=== PATIENT | female | born 1955 ===

== ENCOUNTER 2017-08-12 21:11 | Observation (INO) ==
--- NOTE | 2017-08-12 21:39 | Emergency Department Note ---
Arrival - Arrival Chief Complaint: Altered Mental Status ED Nursing Triage Note: Patient is a transfer from [facility] for futher evaluation of uti, hypoglycemia and altered mental status. Patient alseep but arousable to verbal upon triage. Patient received D50 at 100ml/hr at [facility]. History of HTN, DM, CVA in May 2016 and high cholesterol. Patient has an old AV fistula to left arm. Blood glucose recheck 116 upon triage. Mode of Arrival: Stretcher Limitations: Altered Mental Status Source: Old Records Reviewed Time Seen by Provider: 08/12/17 21:35 - History of Present Illness HPI Narrative: This 61-year-old Jones female presents on transfer from [facility] after being seen there for hypoglycemia. The patient feels a ridge that a blood sugar of 29 with subsequent D50 arose to 170. However the patient failed to awaken and continued be sluggish and lethargic. Notable workup there revealed a negative CT scan and evidence of urinary tract infection. Of note, the patient is on dialysis and is poorly compliant frequently demanding to be taken off dialysis early. Fridays dialysis she only pursued for 30 minutes before demanding to be taken off. BUN at [facility] was 69 with a creatinine of 8.8 and a potassium 3.2. The patient is still lethargic but arousable with noxious stimuli with a Accu-Chek of 116 on arrival here. Onset (ago): hour(s) (Patient presents several hours post onset of symptoms) Date of Last Menstrual Period: menopause Allergies/Adverse Reactions: Allergies Allergy/AdvReac Type Severity Reaction Status Date / Time promethazine AdvReac Intermediate Confusion Verified 10/19/16 06:56 Home Medications: Home Medications Medication Instructions Recorded Confirmed Type Multivitamin [Multivitamins] 1 each PO DAILY 07/04/16 08/12/17 History Acetaminophen Tab [Tylenol Tab] 650 mg PO Q6H PRN #0 tablet 07/13/16 08/12/17 Rx Dextrose 50% [D50] 25 gm IV PRN PRN #0 vial 07/13/16 08/12/17 Rx Diphenoxylate/Atrop 2.5-0.025 1 tablet PO BID tablet 07/13/16 08/12/17 Rx [Lomotil Tab] Glucagon 1 mg IM PRN PRN #0 vial 09/15/16 10/15/17 Rx Heparin Inj 2,000 unit IV WITH DIALYSIS PRN #0 07/13/16 08/12/17 Rx vial Insulin Regular [HumuLIN R] See Protocol SUBCUT ACHS injection 07/13/16 Rx Pantoprazole Tab [Protonix Tab] 40 mg PO BID tablet 07/13/16 08/12/17 Rx amLODIPine [Norvasc] 5 mg PO DAILY tablet 07/13/16 08/12/17 Rx Bisacodyl Tab [Dulcolax Tab] 2 tablet PO BEDTIME 10/18/16 08/12/17 History Digoxin Tab [Lanoxin Tab] 0.125 mg PO DIRECTED 10/18/16 08/12/17 History Docusate Sodium Cap [Colace Cap] 100 mg PO BID 10/18/16 08/12/17 History Gabapentin 100 mg PO BEDTIME 10/18/16 08/12/17 History HYDROcodone/ACETAMIN 5-325 [[place] 1 tablet PO DIRECTED 10/18/16 08/12/17 History 5-325] Insulin Detemir [Levemir] 10 unit SUBCUT BEDTIME 10/18/16 08/12/17 History Ondansetron [Ondansetron Odt] 4 mg PO BID 10/18/16 08/12/17 History Simethicone [Bicarsim] 80 mg PO QID 10/18/16 08/12/17 History Simvastatin [Zocor] 40 mg PO BEDTIME 10/18/16 08/12/17 History Review of System - Review of System ROS unobtainable: due to mental status Medical,Surgical,& Family Hx - Medical History Cardio: History of: Cardiac Dysrhythmia (DIGOXIN Sun), Hypertension Neurology: History of: Cerebrovascular Accident (May 2016) Endocrine: History of: Diabetes Mellitus (IDDM), Dyslipidemia Respiratory: History of: Asthma Renal: History of: Dialysis, Renal Problems (SPOT ON LEFT KIDNEY DR KAUFMAN) Gastrointestinal: History of: GERD Musculoskeletal: History of: Musculoskeletal Problems (OA) - Surgical History Cardiac Surgeries: Sugical HX of: Carotid Endarterectomy Thoracic Surgeries: Surgical HX of;: Kidney (Renal Surgery) (ROBOTIC ASSISTED LAPAROSCOPIC LEFT PARTIAL NEPHRECTOMY), Nephrectomy (LEFT PARTIUAL) HEENT Surgeries: Surgical HX of: Carotid Endarterectomy, Eye Surgery (CATARACTS) , Tonsilectomy & Adenoidectomy Abdominal Surgeries: Surgical HX of: Cholecystectomy, EGD Patient denies: Gastric Bypass Surgery (?) Reproductive Surgeries: Surgical HX of;: Hysterectomy Orthopedic Surgeries: Surgical HX of;: Orthopedic Surgery (R KNEE SCOPE) - Family History Family History: Reports;: Family Diabetes (MATERNAL GRANDMOTHER), Family Hypertension (MATERNAL GRANDMOTHER) - Social History Smoking Status: Unknown if ever smoked Frequency of Alcohol Use: Unknown Type of Drug Use: Unknown Exam Physical Examination: GENERAL: Obese Jones female demonstrating O sign. HEENT: Normocephalic. No trauma. Moist mucous membranes. Left facial droop EOMI. PERRLA. ENT NML except for very poor dentition NECK: Supple. No adenopathy. CARDIAC: Regular. No murmurs. Heart rate 61 CHEST: Clear to auscultation. No respiratory distress. O2 sat 100%. Vas-Cath left chest ABDOMEN: Soft. Nontender. Active bowel sounds. EXTREMITIES: No trauma. Normal ROM. No pedal edema. SKIN: No diaphoresis. No rash. NEURO: Lethargic but responds to noxious symptom stimuli appropriately. Vital Signs: Vital Signs Temperature 97.9 F 08/12/17 21:11 Pulse Rate 61 08/12/17 21:11 Respiratory Rate 20 08/12/17 21:11 Blood Pressure 142/65 08/12/17 21:11 O2 Sat by Pulse Oximetry 100 08/12/17 21:11 Course - Consultations Consultation #1: Hospitalist service will admit for further evaluation treatment. Results - Labs Labs: Lab per [facility] hematocrit 38 white blood cell count 4600 BUN 69 creatinine 8.8 potassium 3.2 sodium 145 glucose 116, urine 1+ positive leukocyte esterase - Impressions EKG per [facility] sinus rhythm with first-degree AV block at 61. Normal QRS duration. Nonspecific ST changes. No acute injury pattern noted. - Diagnostic Findings Procedure: CT: image reviewed by me, report reviewed by me (Brain: Normal with no acute injury noted) Disposition Clinical Impression: Altered mental status, Dialysis dependent renal failure Disposition: Still a Patient Condition: Guarded Time of Disposition: 22:06
[2017-08-12] MEDS ORDERED: LEVOFLOXACIN INJ 750 MG in PREMIX 1 EACH IV STA (21:48)
[2017-08-12] MEDS ORDERED: LEVOFLOXACIN INJ 150 ML IV ONE (22:05)
--- NOTE | 2017-08-12 22:21 | Hospitalist History & Physical ---
Assessment and Plan - Time spent with patient Time spent with patient: Less than 30 minutes (1) Altered mental status Status: Acute Assessment and plan: - Secondary to hypoglycemia. Given this patient's ESRD status, most likely her insulin is stacking; CT head from OSH without any acute process. - Neurochecks Q4h - Continue D5 IV with frequent FSG checks Current Visit: Yes (2) Diabetes mellitus Status: Chronic Assessment and plan: - Chronic issue. Given the patient's Hypoglycemia, will hold Insulin. Patient 's home insulin dosing is currently unclear. Our old records indicate that she took Detemir 10u Qhs and Regular insulin - Units not indicated. [facility] records only indicate that she receives Insulin needles but does not specify the insulin used/dose. - Will need to discuss with patient her insulin regiment once she is more awake. Will plan to hold insulin until FSG is consistently >160 Current Visit: No Qualifiers: Diabetes mellitus type: type 2 Diabetes mellitus complication status: with hypoglycemia Diabetes mellitus complication detail: with coma Diabetes mellitus chcf insulin use: unspecified termite technician insulin use status Qualified Code(s): E11.641 - Type 2 diabetes mellitus with hypoglycemia with coma (3) End stage renal disease Status: Chronic Assessment and plan: - Dialyzes MWF, last session was 08/10 (Sunday) and patient only let them dialyze for 30-mins. - Will consult Nephrology for future HD needs. - Dialyzes through [facility] (Appears old vs not well cared for, no signs of infection) Current Visit: No (4) Hypertension Status: Chronic Assessment and plan: - Chronic issue. There is a discrepancy between the transfer papers and our records here from 1-year ago. Medications from [facility] do not indicate that the patient is taking any blood pressure medications, our records show the patient takes Amlodipine 5-mg daily. Patient not currently hypertensive in the ER, will treat if that changes. Current Visit: No (5) Urinary tract infection Status: Acute Assessment and plan: - UA was checked at the OSh prior to transfer, and significant for 1+ Leukocytes. Patient received Levoflox in the ER on transfer for this. I do not feel that this patient has a UTI given that she is ESRD and likely has stagnant urine that will be dirty. No other Signs or Symptoms to suggest infection. Will hold off any further antibiotics on admission. - Follow up Urine Culture, blood cultures Current Visit: No History of Present Illness Chief complaint: Low Glucose, non-responsive History of present illness: Ms. Cabrera is a 61 year old [place] female with pmh of DMII, h/o CVA with R sided weakness, HTN and ESRD. The patient presented as a transfer from an outside facility ([facility]) secondary to hypoglycemia (29). The patient was largely non-responsive on exam, therefore history was obtained from chart review. The patient reportedly completed 30-minutes of hemodialysis on Sunday (08/10) - she stopped the HD per records. The following day, she was noted to have a glucose of 29. She was given N50 by EMS and her FSG responded up to 170, however the patient did not awaken. The patient's glucose was later found to be low again. She was subsequently started on D5 and transferred. Per the records, she was also noted to have a UTI at the OSH. Home Medications Medication Instructions Recorded Confirmed Type Multivitamin [Multivitamins] 1 each PO DAILY 07/04/16 08/12/17 History Acetaminophen Tab [Tylenol Tab] 650 mg PO Q6H PRN #0 tablet 07/13/16 08/12/17 Rx Dextrose 50% [D50] 25 gm IV PRN PRN #0 vial 07/13/16 08/12/17 Rx Diphenoxylate/Atrop 2.5-0.025 1 tablet PO BID tablet 07/13/16 08/12/17 Rx [Lomotil Tab] Glucagon 1 mg IM PRN PRN #0 vial 07/13/16 08/12/17 Rx Heparin Inj 2,000 unit IV WITH DIALYSIS PRN #0 07/13/16 08/12/17 Rx vial Insulin Regular [HumuLIN R] See Protocol SUBCUT ACHS injection 07/13/16 Rx Pantoprazole Tab [Protonix Tab] 40 mg PO BID tablet 07/13/16 08/12/17 Rx amLODIPine [Norvasc] 5 mg PO DAILY tablet 07/13/16 08/12/17 Rx Bisacodyl Tab [Dulcolax Tab] 2 tablet PO BEDTIME 10/18/16 08/12/17 History Digoxin Tab [Lanoxin Tab] 0.125 mg PO DIRECTED 10/18/16 08/12/17 History Docusate Sodium Cap [Colace Cap] 100 mg PO BID 10/18/16 08/12/17 History Gabapentin 100 mg PO BEDTIME 10/18/16 08/12/17 History HYDROcodone/ACETAMIN 5-325 [[place] 1 tablet PO DIRECTED 10/18/16 08/12/17 History 5-325] Insulin Detemir [Levemir] 10 unit SUBCUT BEDTIME 10/18/16 08/12/17 History Ondansetron [Ondansetron Odt] 4 mg PO BID 10/18/16 08/12/17 History Simethicone [Bicarsim] 80 mg PO QID 10/18/16 08/12/17 History Simvastatin [Zocor] 40 mg PO BEDTIME 10/18/16 08/12/17 History Allergies Allergy/AdvReac Type Severity Reaction Status Date / Time promethazine AdvReac Intermediate Confusion Verified 10/19/16 06:56 Medical,Surgical,& Family Hx - Medical History Cardio: History of: Cardiac Dysrhythmia (DIGOXIN Sun), Hypertension Neurology: History of: Cerebrovascular Accident (May 2016) Endocrine: History of: Diabetes Mellitus (IDDM), Dyslipidemia Respiratory: History of: Asthma Renal: History of: Dialysis, Renal Problems (SPOT ON LEFT KIDNEY DR KAUFMAN) Gastrointestinal: History of: GERD Musculoskeletal: History of: Musculoskeletal Problems (OA) - Surgical History Cardiac Surgeries: Sugical HX of: Carotid Endarterectomy Thoracic Surgeries: Surgical HX of;: Kidney (Renal Surgery) (ROBOTIC ASSISTED LAPAROSCOPIC LEFT PARTIAL NEPHRECTOMY), Nephrectomy (LEFT PARTIUAL) HEENT Surgeries: Surgical HX of: Carotid Endarterectomy, Eye Surgery (CATARACTS) , Tonsilectomy & Adenoidectomy Abdominal Surgeries: Surgical HX of: Cholecystectomy, EGD Patient denies: Gastric Bypass Surgery (?) Reproductive Surgeries: Surgical HX of;: Hysterectomy Orthopedic Surgeries: Surgical HX of;: Orthopedic Surgery (R KNEE SCOPE) - Family History Family History: Reports;: Family Diabetes (MATERNAL GRANDMOTHER), Family Hypertension (MATERNAL GRANDMOTHER) - Social History Smoking Status: Unknown if ever smoked Frequency of Alcohol Use: Unknown Type of Drug Use: Unknown ROS unobtainable: due to mental status Exam - Constitutional Vitals: Period Temp Pulse Resp BP Sys/Darby Pulse Ox Last 24 Hr 97.9 F-97.9 F 61-61 20-20 142-142/65-65 100 General appearance: no acute distress, over weight, disheveled - Head Head exam: Present: normocephalic, atraumatic. Absent: abrasion, contusion, hematoma - Eye Eye exam: Present: other (pupils round and equal, anicteric, eomi) - Neck Neck exam: Present: normal inspection, other (trachea midline). Absent: thyromegaly - Respiratory Respiratory exam: Present: clear to auscultation bilaterally. Absent: accessory muscle use, chest wall tenderness, decreased breath sounds, rales, rhonchi, stridor, wheezes - Cardiovascular Cardiovascular exam: Present: regular rate and rhythm. Absent: diastolic murmur , gallop, JVD, rubs, systolic murmur - GI/Abdominal GI/Abdominal exam: Present: normal bowel sounds. Absent: distended, mass, organomegaly, tenderness - Extremities Exam Extremities exam: Present: normal capillary refill, edema. Absent: calf tenderness - Neurological Exam Neurological exam: Present: altered, CN II-XII intact, other (will awaken for a few seconds to physical stimulus, but quickly falls back to sleep) - Skin Skin exam: Present: normal color, warm, dry, intact. Absent: rash, urticaria Results - Labs Labs: Labs from the OSH were reviewed and significant for: - UA with +Leuks H&H 11.8/38.9 - Serum Cr 8.6 Platelets 77 - BUN 69 - K+ 3.2 - Ca++ 8.3 - Na+ 145 - Glucose 58 (on transfer) - EKG EKG results: sinus rhythm - Impressions 61 yo [place] Female with DMII, ESRD presenting with Altered Mental Status secondary to hypoglycemia - Diagnostic Findings Procedure: Chest x-ray: image reviewed by me (Clear lung agrawal bilaterally), CT : report reviewed by me (CT-head report from OSH reviewed and without any acute processes) Quality Measures - VTE Deep Vein Thrombosis/Pulmonary Embolism Present on Admission: No
[2017-08-12] MEDS ORDERED: ACETAMINOPHEN 325 MG TABLET PO PRN (22:24)
[2017-08-12] MEDS ORDERED: GLUCAGON 1 MG VIAL IM PRN (22:24)
[2017-08-12] MEDS ORDERED: DEXTROSE 50% 25 GM/50 ML VIAL IV PRN (22:24)
[2017-08-12] MEDS ORDERED: ONDANSETRON 4 MG/2 ML VIAL IV PRN (22:56)
[2017-08-12 23:04] LABS: Troponin I Only < 0.015 NG/ML (0.00-0.045)
[2017-08-13] MEDS: DEXTROSE 5% NACL 0.9% 1,000 ML IV SCH ×2 (00:13→06:29)
[2017-08-13] MEDS ORDERED: hydrALAZINE 20 MG/1 ML VIAL IV ONE (01:33)
[2017-08-13 05:43] LABS: Basophils % 0.5 % (0.0-0.8); Eosinophils # 0.1 10*3/uL (0.0-0.87); Eosinophils % 1.4 % (0.00-10.9); Hematocrit 36.5 VOL% (35.7-47.0); Hemoglobin 12.1 GM/DL (12.0-16.0); Immature Granulocytes % 0.2 %; Immature Granulocytes Absolute 0.01 #; Lymphocytes % 16.2 % (21.3-54.2); Mean Corpuscular HGB Conc 33.2 GM/DL (32-36); Mean Corpuscular Hemoglobin 31 PG (27-34); Mean Corpuscular Volume 93.1 FL (87-102); Mean Platelet Volume 11.7 FL (9.6-12.0); Monocytes # 0.4 10*3/uL (0.11-0.8); Monocytes % 7.1 % (1.7-12.7); Neutrophils # 4.4 10*3/uL (1.4-7.4); Neutrophils % 74.6 % (38.7-73.9); Platelet Count 96 T/CUMM (130-400); Red Blood Count 3.92 MC/CUMM (3.8-5.5); Red Cell Distribution Width 14.2 % (9.3-17.3); White Blood Count 5.9 T/CUMM (4-12)
[2017-08-13 06:18] LABS: Calcium 7.8 MG/DL (8.5-10.1); Osmolality,Calculated 307.4 MOS/KG (273-304); Potassium 3.9 MMOL/L (3.5-5.1)
[2017-08-13 06:22] LABS: Lymphocytes 12 % (20-55); Segmented Neutrophils 82 % (50-85); Total Cells Counted 100
[2017-08-13 06:23] LABS: Burr Cells Slight; Hypochromasia Slight
--- NOTE | 2017-08-13 08:06 | XRay Report ---
Portable chest Date: 08/12/2017 Clinical history: Shortness of breath Comparison: 07/26/2016 Technique: Portable AP sitting chest Findings: The heart is slightly larger in size with stable right IJ venous dialysis catheter. Expiratory chest with accentuation of the perihilar markings. Stable mediastinum and osseous structures. Impression: Limited expiratory chest with minimal perihilar atelectasis/edema/infiltration. Stable right IJ venous dialysis catheter. PROCEDURE INTERPRETED AT [facility] DEPARTMENT OF RADIOLOGY Final Report Signed by: Dr. Yolanda Remy
[2017-08-13] MEDS ORDERED: INFLUENZA VIRUS VACCINE 0.5 ML SYRINGE IM ONE (09:00)
[2017-08-13] MEDS ORDERED: PANTOPRAZOLE 40 MG TABLET PO SCH (09:00)
--- NOTE | 2017-08-13 09:38 | Discharge Summary ---
Hospital Course - Hospital Course Hospital Course: 61-year-old female admitted to the emergency department with hypoglycemic episode. She has end-stage renal disease and receives dialysis. She reports that she took her insulin yesterday but did not eat therefore became hypoglycemic. She has returned to a normal level of consciousness. She is alert awake and oriented 3 and in no acute distress. Her dextrose infusion was discontinued earlier this morning around 5 AM and her blood sugars have been in the 200s. She has eaten breakfast and is able to maintain adequate glucose levels. She is being discharged home in stable condition to follow-up with her primary care physician. No changes were made to her home medications. She will need to continue dialysis as scheduled. Further recommendations will depend on her response to therapy as an outpatient. - Time spent with patient Time with patient DS: Less than 30 minutes Diagnosis - Discharge Diagnosis (1) ESRD on dialysis Status: Chronic (2) Diabetes mellitus Status: Chronic (3) Hypertension Status: Chronic (4) Hypoglycemia Status: Resolved Discharge Plan - Discharge Data Disposition: Disch To Home/Self Care Condition at Discharge: Stable Discharge Diet: diabetic diet Activity: resume usual activities as tolerated Hygiene: no restrictions Weight Bearing at Discharge: full weight bearing Driving: no restrictions Contact your physician if you experience:: fever over 101 - Discharge Medications Continue Multivitamin [Multivitamins] 1 each PO DAILY Diphenoxylate/Atrop 2.5-0.025 [Lomotil Tab] 1 tablet PO BID tablet Heparin Inj 2,000 unit IV WITH DIALYSIS PRN #0 vial PRN Reason: DIALYSIS Pantoprazole Tab [Protonix Tab] 40 mg PO BID tablet amLODIPine [Norvasc] 5 mg PO DAILY tablet Simvastatin [Zocor] 40 mg PO BEDTIME Simethicone [Bicarsim] 80 mg PO QID Docusate Sodium Cap [Colace Cap] 100 mg PO BID Ondansetron [Ondansetron Odt] 4 mg PO BID Gabapentin 100 mg PO BEDTIME HYDROcodone/ACETAMIN 5-325 [[place] 5-325] 1 tablet PO DIRECTED Bisacodyl Tab [Dulcolax Tab] 2 tablet PO BEDTIME Digoxin Tab [Lanoxin Tab] 0.125 mg PO DIRECTED Insulin Detemir [Levemir] 10 unit SUBCUT BEDTIME Discontinued Acetaminophen Tab [Tylenol Tab] 650 mg PO Q6H PRN #0 tablet PRN Reason: Fever > 100.4 Or Headache Dextrose 50% [D50] 25 gm IV PRN PRN #0 vial PRN Reason: Hypoglycemia with IV access Glucagon 1 mg IM PRN PRN #0 vial PRN Reason: Hypoglycemia w/o IV access Insulin Regular [HumuLIN R] See Protocol SUBCUT ACHS injection - Follow Up or Referral - Forms/Instructions Additional Discharge Instructions: Follow-up with primary care physician, and nephrology as needed Exam - Constitutional Vitals: Period Temp Pulse Resp BP Sys/Darby Pulse Ox Last 24 Hr 97.0 F-97.9 F 61-93 12-20 135-183/61-93 97-100 Discharge Results Procedures and tests throughout hospitalization: Pending Orders 08/12/17 22:35 Blood Culture Stat Labs on day of discharge: Labs from last 24 hours 08/13/17 08/13/17 08/13/17 09:04 08:04 07:17 WBC RBC Hgb Hct MCV MCH MCHC RDW Plt Count MPV Neut % (Auto) Lymph % (Auto) [place] % (Auto) Eos % (Auto) Baso % (Auto) Neut # (Auto) Lymph # (Auto) [place] # (Auto) Eos # (Auto) Baso # (Auto) Total Counted Immature Gran % Nucleated RBC % Immature Gran # Segmented Neutrophils Lymphocytes Monocytes Basophils Nucleated RBCs # Immature Plt Fraction Hypochromasia Renzo Cells Morphology Comment Sodium Potassium Chloride Carbon Dioxide Anion Gap BUN Creatinine GFR Calculation BUN/Creatinine Ratio Glucose POC Glucose 216 H 180 H 200 H Hemoglobin A1c Calculated Osmolality Calcium Total Creatine Kinase CK-MB (CK-2) Troponin I 08/13/17 08/13/17 08/13/17 06:16 05:27 05:07 WBC RBC Hgb Hct MCV MCH MCHC RDW Plt Count MPV Neut % (Auto) Lymph % (Auto) [place] % (Auto) Eos % (Auto) Baso % (Auto) Neut # (Auto) Lymph # (Auto) [place] # (Auto) Eos # (Auto) Baso # (Auto) Total Counted Immature Gran % Nucleated RBC % Immature Gran # Segmented Neutrophils Lymphocytes Monocytes Basophils Nucleated RBCs # Immature Plt Fraction Hypochromasia Renzo Cells Morphology Comment Sodium Potassium Chloride Carbon Dioxide Anion Gap BUN Creatinine GFR Calculation BUN/Creatinine Ratio Glucose POC Glucose 238 H 219 H Hemoglobin A1c 5.2 Calculated Osmolality Calcium Total Creatine Kinase CK-MB (CK-2) Troponin I 08/13/17 08/13/17 08/13/17 05:07 05:07 04:23 WBC 5.9 RBC 3.92 Hgb 12.1 Hct 36.5 MCV 93.1 MCH 31 MCHC 33.2 RDW 14.2 Plt Count 96 L MPV 11.7 Neut % (Auto) 74.6 H Lymph % (Auto) 16.2 L [place] % (Auto) 7.1 Eos % (Auto) 1.4 Baso % (Auto) 0.5 Neut # (Auto) 4.4 Lymph # (Auto) 1.0 L [place] # (Auto) 0.4 Eos # (Auto) 0.1 Baso # (Auto) 0.0 Total Counted 100 Immature Gran % 0.2 Nucleated RBC % 0.0 Immature Gran # 0.01 Segmented Neutrophils 82 Lymphocytes 12 L Monocytes 5 Basophils 1.0 H Nucleated RBCs # 0.00 Immature Plt Fraction 0.0 Hypochromasia Slight Renzo Cells Slight Morphology Comment Sodium 140 Potassium 3.9 Chloride 103 Carbon Dioxide 23 Anion Gap 17.9 H BUN 81 H Creatinine 8.20 H GFR Calculation 5 BUN/Creatinine Ratio 9.00 Glucose 193 H POC Glucose 199 H Hemoglobin A1c Calculated Osmolality 307.4 H Calcium 7.8 L Total Creatine Kinase CK-MB (CK-2) Troponin I 08/13/17 08/13/17 08/13/17 03:17 02:01 01:05 WBC RBC Hgb Hct MCV MCH MCHC RDW Plt Count MPV Neut % (Auto) Lymph % (Auto) [place] % (Auto) Eos % (Auto) Baso % (Auto) Neut # (Auto) Lymph # (Auto) [place] # (Auto) Eos # (Auto) Baso # (Auto) Total Counted Immature Gran % Nucleated RBC % Immature Gran # Segmented Neutrophils Lymphocytes Monocytes Basophils Nucleated RBCs # Immature Plt Fraction Hypochromasia [place] Cells Morphology Comment Sodium Potassium Chloride Carbon Dioxide Anion Gap BUN Creatinine GFR Calculation BUN/Creatinine Ratio Glucose POC Glucose 140 H 93 81 Hemoglobin A1c Calculated Osmolality Calcium Total Creatine Kinase CK-MB (CK-2) Troponin I 08/12/17 08/12/17 22:20 21:22 WBC RBC Hgb Hct MCV MCH MCHC RDW Plt Count MPV Neut % (Auto) Lymph % (Auto) [place] % (Auto) Eos % (Auto) Baso % (Auto) Neut # (Auto) Lymph # (Auto) [place] # (Auto) Eos # (Auto) Baso # (Auto) Total Counted Immature Gran % Nucleated RBC % Immature Gran # Segmented Neutrophils Lymphocytes Monocytes Basophils Nucleated RBCs # Immature Plt Fraction Hypochromasia Renzo Cells Morphology Comment Sodium Potassium Chloride Carbon Dioxide Anion Gap BUN Creatinine GFR Calculation BUN/Creatinine Ratio Glucose POC Glucose 116 H Hemoglobin A1c Calculated Osmolality Calcium Total Creatine Kinase 43 CK-MB (CK-2) < 1.0 Troponin I < 0.015 DS: Provider Date of admission: 08/12/17 22:20 Primary care physician: Israel Ibarra MD Attending physician on admission: Edyta Yeung MD Consults: 08/12/17 23:11 Consult to Physician [CONS] Routine Comment: ESRD on HD Consulting Provider: Eduin Davies 08/13/17 00:49 Consult to Diabetes Center, Educator [CONS] Routine Reason for Stem Roller Or Crusher Operator: Diabetes Education Consult to Dietitian [CONS] Routine Reason for Dietitian: Dietary Consult 08/13/17 00:53 Consult to Pastoral Services [CONS] Routine Comment: Pastoral Screen: Request American Indian Policy Specialist Visit Pastoral Screen Source of Request: Patient Discharging clinician: Edyta Yeung MD Expected date of discharge: 08/13/17
[2017-08-13 11:50] VITALS: BP 165/62
== END 2017-08-13 11:22 | disposition home or self-care (01) ==
LOC: EDUNIT# → N.ED 21:11 → N.EDINP 22:20 → INTOOBSV 22:20 → N.CC 23:56
PROVIDERS: ADMIT Family Medicine; ATTEND Family Medicine

== ENCOUNTER 2017-08-14 15:39 | Inpatient (IN) ==
[2017-08-14] MEDS ORDERED: diphenhydrAMINE CAP 25 MG CAPSULE PO PRN (17:31)
[2017-08-14] MEDS ORDERED: BISACODYL 5 MG TABLET PO PRN (17:31)
[2017-08-14] MEDS ORDERED: ZALEPLON 5 MG CAPSULE PO PRN (17:31)
[2017-08-14] MEDS ORDERED: ONDANSETRON 4 MG/2 ML VIAL IV PRN (17:31)
[2017-08-14] MEDS ORDERED: DOCUSATE SODIUM 100 MG CAPSULE PO PRN (17:31)
[2017-08-14] MEDS ORDERED: ACETAMINOPHEN 325 MG TABLET PO PRN (17:31)
[2017-08-14] MEDS ORDERED: LACTULOSE 20 GM/30 ML UDCUP PO PRN (17:31)
[2017-08-14] MEDS ORDERED: DEXTROSE 50% 25 GM/50 ML VIAL IV PRN (17:35)
[2017-08-14] MEDS ORDERED: GLUCAGON 1 MG VIAL IM PRN (17:35)
[2017-08-14] MEDS ORDERED: cloNIDine 0.1 MG TABLET PO PRN (17:37)
[2017-08-14] MEDS: DEXTROSE 10% 1,000 ML IV SCH (17:42)
[2017-08-14] MEDS: INSULIN LISPRO 100 UNIT/ML SUBCUT SCH ×2 (20:53→23:28)
[2017-08-15] MEDS: INSULIN LISPRO 100 UNIT/ML SUBCUT SCH ×6 (07:43→21:26)
[2017-08-15] MEDS: PANTOPRAZOLE 40 MG TABLET PO SCH (09:05)
[2017-08-15] MEDS ORDERED: HEPARIN 10,000 UNIT/10 ML VIAL IV PRN (14:36)
[2017-08-15] MEDS: DEXTROSE 10% 1,000 ML IV SCH (19:06)
[2017-08-16] MEDS: INSULIN LISPRO 100 UNIT/ML SUBCUT SCH ×6 (04:04→23:24)
[2017-08-16] MEDS ORDERED: LIDOCAINE 1%/EPI INJ 20 ML VIAL ONE (06:24)
[2017-08-16 07:21] LABS: Basophils % 0.8 % (0.0-0.8); Eosinophils # 0.1 10*3/uL (0.0-0.87); Eosinophils % 2.1 % (0.00-10.9); Hematocrit 34.2 VOL% (35.7-47.0); Hemoglobin 11.6 GM/DL (12.0-16.0); Immature Granulocytes % 0.4 %; Immature Granulocytes Absolute 0.02 #; Lymphocytes # 1.4 10*3/uL (1.4-4.0); Lymphocytes % 29.1 % (21.3-54.2); Mean Corpuscular HGB Conc 33.9 GM/DL (32-36); Mean Corpuscular Hemoglobin 31 PG (27-34); Mean Corpuscular Volume 91.9 FL (87-102); Mean Platelet Volume 11.3 FL (9.6-12.0); Monocytes # 0.6 10*3/uL (0.11-0.8); Monocytes % 11.8 % (1.7-12.7); Neutrophils # 2.7 10*3/uL (1.4-7.4); Neutrophils % 55.8 % (38.7-73.9); Platelet Count 81 T/CUMM (130-400); Red Blood Count 3.72 MC/CUMM (3.8-5.5); Red Cell Distribution Width 14.6 % (9.3-17.3); White Blood Count 4.9 T/CUMM (4-12)
[2017-08-16 08:10] LABS: Calcium 7.3 MG/DL (8.5-10.1); Osmolality,Calculated 297.3 MOS/KG (273-304); Potassium 4.8 MMOL/L (3.5-5.1)
[2017-08-16] MEDS ORDERED: PROPOFOL 200 MG/20 ML VIAL IV ONE (09:42)
[2017-08-16] MEDS ORDERED: KETAMINE 500 MG/10 ML VIAL ONE (09:42)
[2017-08-16] MEDS ORDERED: MIDAZOLAM 2 MG/2 ML VIAL ONE (09:43)
[2017-08-16] MEDS: PANTOPRAZOLE 40 MG TABLET PO SCH (09:47)
[2017-08-16] MEDS ORDERED: FLUTICASONE 50 MCG NASAL SPRAY 16 GM BOTTLE BOTH NARES PRN (14:15)
[2017-08-16] MEDS: amLODIPine 5 MG TABLET PO SCH (15:46)
[2017-08-16] MEDS: CALCIUM ACETATE 667 MG CAPSULE PO SCH (17:25)
[2017-08-16] MEDS ORDERED: GABAPENTIN 100 MG CAPSULE PO SCH (21:00)
[2017-08-16] MEDS ORDERED: PHENYTOIN ER 100 MG CAPSULE PO SCH (21:00)
[2017-08-16] MEDS: LABETALOL 100 MG TABLET PO SCH (23:24)
[2017-08-17] MEDS: INSULIN LISPRO 100 UNIT/ML SUBCUT SCH ×4 (03:00→14:38)
[2017-08-17] MEDS: LABETALOL 100 MG TABLET PO SCH ×2 (06:32→14:39)
[2017-08-17 08:12] VITALS: BP 152/69
[2017-08-17] MEDS: PANTOPRAZOLE 40 MG TABLET PO SCH (08:16)
[2017-08-17] MEDS: amLODIPine 5 MG TABLET PO SCH (08:16)
[2017-08-17] MEDS: CALCIUM ACETATE 667 MG CAPSULE PO SCH ×2 (08:16→14:38)
[2017-08-17] MEDS ORDERED: MULTIVITAMIN (CENTRUM) TABLET PO SCH (09:00)
[2017-08-17] MEDS ORDERED: HEPARIN 10,000 UNIT/10 ML VIAL IV SCH (11:30)
[2017-08-18] MEDS ORDERED: DIGOXIN 0.125 MG TABLET PO SCH (09:00)
== END 2017-08-17 14:59 | disposition home or self-care (01) | DRG 638 ==
LOC: EDUNIT# → N.ED 15:39 → N.EDINP 17:31 → N.5E 18:43
PROVIDERS: ADMIT Internal Medicine Nephrology; ATTEND Internal Medicine Nephrology

== ENCOUNTER 2018-01-23 02:48 | Inpatient (IN) ==
[2018-01-23] MEDS ORDERED: DEXTROSE 50% 25 GM/50 ML VIAL IV PRN (05:01)
[2018-01-23] MEDS ORDERED: ACETAMINOPHEN 325 MG TABLET PO PRN (05:01)
[2018-01-23] MEDS ORDERED: GLUCAGON 1 MG VIAL IM PRN (05:01)
[2018-01-23] MEDS ORDERED: hydrALAZINE 20 MG/1 ML VIAL IV PRN (05:28)
[2018-01-23 06:59] LABS: Eosinophils # 0.1 10*3/uL (0.0-0.87); Eosinophils % 2.4 % (0.00-10.9); Hematocrit 24.7 VOL% (35.7-47.0); Hemoglobin 8.4 GM/DL (12.0-16.0); Lymphocytes # 0.8 10*3/uL (1.4-4.0); Lymphocytes % 26.6 % (21.3-54.2); Mean Corpuscular Hemoglobin 32 PG (27-34); Mean Corpuscular Volume 92.5 FL (87-102); Monocytes # 0.3 10*3/uL (0.11-0.8); Monocytes % 8.8 % (1.7-12.7); Neutrophils # 1.8 10*3/uL (1.4-7.4); Neutrophils % 61.2 % (38.7-73.9); Platelet Count 153 T/CUMM (130-400); Red Blood Count 2.67 MC/CUMM (3.8-5.5); Red Cell Distribution Width 14.1 % (9.3-17.3)
[2018-01-23 07:36] LABS: Albumin 2.8 G/DL (3.4-5.0); Bilirubin,Total 0.9 MG/DL (0.2-1.0); Calcium 8.4 MG/DL (8.5-10.1); Osmolality,Calculated 280.5 MOS/KG (273-304); Potassium 3.2 MMOL/L (3.5-5.1)
[2018-01-23] MEDS: PANTOPRAZOLE 40 MG TABLET PO SCH (09:24)
[2018-01-23] MEDS: INSULIN REGULAR 100 UNIT/ML SUBCUT SCH ×4 (09:26→23:54)
[2018-01-23] MEDS: amLODIPine 5 MG TABLET PO SCH (10:34)
[2018-01-23] MEDS: HEPARIN 5,000 UNIT/1 ML VIAL SUBCUT SCH ×2 (10:34→21:04)
[2018-01-23] MEDS: cefTRIAXone 1,000 MG in SYRINGE 1 EACH IV SCH (21:04)
[2018-01-23] MEDS: PHENYTOIN ER 100 MG CAPSULE PO SCH (21:04)
[2018-01-24 05:27] LABS: Basophils % 0.7 % (0.0-0.8); Eosinophils # 0.1 10*3/uL (0.0-0.87); Eosinophils % 2.7 % (0.00-10.9); Hematocrit 23.7 VOL% (35.7-47.0); Immature Granulocytes % 0.3 %; Immature Granulocytes Absolute 0.01 #; Lymphocytes # 1.2 10*3/uL (1.4-4.0); Lymphocytes % 40.2 % (21.3-54.2); Mean Corpuscular HGB Conc 33.8 GM/DL (32-36); Mean Corpuscular Hemoglobin 32 PG (27-34); Mean Corpuscular Volume 94.4 FL (87-102); Mean Platelet Volume 10.4 FL (9.6-12.0); Monocytes # 0.3 10*3/uL (0.11-0.8); Monocytes % 9.8 % (1.7-12.7); Neutrophils # 1.4 10*3/uL (1.4-7.4); Neutrophils % 46.3 % (38.7-73.9); Platelet Count 164 T/CUMM (130-400); Red Blood Count 2.51 MC/CUMM (3.8-5.5)
[2018-01-24 05:53] LABS: Hypochromasia 1+; Ovalocytes Slight; Platelet Estimate Normal
[2018-01-24 06:05] LABS: Calcium 8.1 MG/DL (8.5-10.1); Osmolality,Calculated 280.4 MOS/KG (273-304); Potassium 3.4 MMOL/L (3.5-5.1)
[2018-01-24] MEDS ORDERED: SIMETHICONE CHEW 80 MG TABLET PO PRN (08:41)
[2018-01-24] MEDS ORDERED: FLUTICASONE 50 MCG NASAL SPRAY 16 GM BOTTLE BOTH NARES PRN (09:00)
[2018-01-24] MEDS: MULTIVITAMIN (CENTRUM) TABLET PO SCH (09:53)
[2018-01-24] MEDS: PANTOPRAZOLE 40 MG TABLET PO SCH (09:54)
[2018-01-24] MEDS: DIGOXIN 0.125 MG TABLET PO SCH (09:54)
[2018-01-24] MEDS: amLODIPine 5 MG TABLET PO SCH (09:54)
[2018-01-24] MEDS: LABETALOL 100 MG TABLET PO SCH ×2 (09:55→21:05)
[2018-01-24] MEDS: HEPARIN 5,000 UNIT/1 ML VIAL SUBCUT SCH ×2 (09:56→21:04)
[2018-01-24] MEDS: INSULIN REGULAR 100 UNIT/ML SUBCUT SCH ×4 (10:27→21:04)
[2018-01-24] MEDS: cefTRIAXone 1,000 MG in SYRINGE 1 EACH IV SCH (12:33)
[2018-01-24] MEDS: CALCIUM ACETATE 667 MG CAPSULE PO SCH ×3 (12:33→17:41)
[2018-01-24] MEDS: GABAPENTIN 100 MG CAPSULE PO SCH (21:04)
[2018-01-24] MEDS: PHENYTOIN ER 100 MG CAPSULE PO SCH (21:04)
[2018-01-25] MEDS: CALCIUM ACETATE 667 MG CAPSULE PO SCH ×3 (08:55→17:17)
[2018-01-25] MEDS: cefTRIAXone 1,000 MG in SYRINGE 1 EACH IV SCH (08:56)
[2018-01-25] MEDS: amLODIPine 5 MG TABLET PO SCH (08:56)
[2018-01-25] MEDS: PANTOPRAZOLE 40 MG TABLET PO SCH (08:57)
[2018-01-25] MEDS: MULTIVITAMIN (CENTRUM) TABLET PO SCH (08:57)
[2018-01-25] MEDS: HEPARIN 5,000 UNIT/1 ML VIAL SUBCUT SCH ×2 (08:57→20:24)
[2018-01-25] MEDS: INSULIN REGULAR 100 UNIT/ML SUBCUT SCH ×4 (08:57→20:33)
[2018-01-25] MEDS: LABETALOL 100 MG TABLET PO SCH ×3 (08:57→20:23)
[2018-01-25 11:41] LABS: Hematocrit 23.6 VOL% (35.7-47.0); Hemoglobin 7.9 GM/DL (12.0-16.0)
[2018-01-25] MEDS ORDERED: EPOETIN ALFA 2,000 UNIT/1 ML VIAL SUBCUT ONE (13:30)
[2018-01-25] MEDS: levETIRAcetam 500 MG TABLET PO SCH (14:26)
[2018-01-25] MEDS: SERTRALINE 25 MG TABLET PO SCH (14:26)
[2018-01-25] MEDS: PHENYTOIN ER 100 MG CAPSULE PO SCH (20:22)
[2018-01-25] MEDS: ATORVASTATIN 40 MG TABLET PO SCH (20:24)
[2018-01-25] MEDS: GABAPENTIN 100 MG CAPSULE PO SCH (20:24)
[2018-01-26 05:55] LABS: Hematocrit 22.4 VOL% (35.7-47.0); Hemoglobin 7.5 GM/DL (12.0-16.0)
[2018-01-26] MEDS: INSULIN REGULAR 100 UNIT/ML SUBCUT SCH ×4 (08:19→20:41)
[2018-01-26] MEDS: HEPARIN 5,000 UNIT/1 ML VIAL SUBCUT SCH ×2 (08:26→20:41)
[2018-01-26] MEDS: DIGOXIN 0.125 MG TABLET PO SCH (08:29)
[2018-01-26] MEDS: cefTRIAXone 1,000 MG in SYRINGE 1 EACH IV SCH (08:29)
[2018-01-26] MEDS: MULTIVITAMIN (CENTRUM) TABLET PO SCH (08:30)
[2018-01-26] MEDS: LABETALOL 100 MG TABLET PO SCH ×3 (08:30→20:39)
[2018-01-26] MEDS: CALCIUM ACETATE 667 MG CAPSULE PO SCH ×3 (08:30→16:04)
[2018-01-26] MEDS: SERTRALINE 25 MG TABLET PO SCH (08:30)
[2018-01-26] MEDS: levETIRAcetam 500 MG TABLET PO SCH (08:30)
[2018-01-26] MEDS: amLODIPine 5 MG TABLET PO SCH (08:31)
[2018-01-26] MEDS: PANTOPRAZOLE 40 MG TABLET PO SCH (08:31)
[2018-01-26] MEDS: PHENYTOIN ER 100 MG CAPSULE PO SCH ×2 (08:31→20:40)
[2018-01-26] MEDS: BISACODYL 10 MG SUPP RECTAL SCH (08:32)
[2018-01-26] MEDS: FERROUS SULFATE 325 MG TABLET PO SCH (12:02)
[2018-01-26] MEDS: GABAPENTIN 100 MG CAPSULE PO SCH (20:39)
[2018-01-26] MEDS: ATORVASTATIN 40 MG TABLET PO SCH (20:41)
[2018-01-27 07:02] LABS: Hematocrit 22.9 VOL% (35.7-47.0)
[2018-01-27] MEDS: INSULIN REGULAR 100 UNIT/ML SUBCUT SCH ×4 (08:46→22:52)
[2018-01-27] MEDS: HEPARIN 5,000 UNIT/1 ML VIAL SUBCUT SCH ×2 (08:47→21:02)
[2018-01-27] MEDS: cefTRIAXone 1,000 MG in SYRINGE 1 EACH IV SCH (08:48)
[2018-01-27] MEDS: SERTRALINE 25 MG TABLET PO SCH (08:49)
[2018-01-27] MEDS: LABETALOL 100 MG TABLET PO SCH ×3 (08:49→21:00)
[2018-01-27] MEDS: FERROUS SULFATE 325 MG TABLET PO SCH (08:49)
[2018-01-27] MEDS: PHENYTOIN ER 100 MG CAPSULE PO SCH ×2 (08:49→21:00)
[2018-01-27] MEDS: BISACODYL 10 MG SUPP RECTAL SCH (08:50)
[2018-01-27] MEDS: PANTOPRAZOLE 40 MG TABLET PO SCH (08:50)
[2018-01-27] MEDS: amLODIPine 5 MG TABLET PO SCH (08:50)
[2018-01-27] MEDS: CALCIUM ACETATE 667 MG CAPSULE PO SCH ×3 (08:50→16:21)
[2018-01-27] MEDS: MULTIVITAMIN (CENTRUM) TABLET PO SCH (08:50)
[2018-01-27] MEDS: levETIRAcetam 500 MG TABLET PO SCH (08:50)
[2018-01-27] MEDS: ATORVASTATIN 40 MG TABLET PO SCH (21:00)
[2018-01-27] MEDS: GABAPENTIN 100 MG CAPSULE PO SCH (21:00)
[2018-01-28] MEDS: INSULIN REGULAR 100 UNIT/ML SUBCUT SCH (09:36)
[2018-01-28] MEDS: CALCIUM ACETATE 667 MG CAPSULE PO SCH ×2 (09:37→12:57)
[2018-01-28 12:55] VITALS: BP 177/59
[2018-01-28] MEDS: cefTRIAXone 1,000 MG in SYRINGE 1 EACH IV SCH (12:56)
[2018-01-28] MEDS: LABETALOL 100 MG TABLET PO SCH (12:56)
[2018-01-28] MEDS: PHENYTOIN ER 100 MG CAPSULE PO SCH (12:56)
[2018-01-28] MEDS: DIGOXIN 0.125 MG TABLET PO SCH (12:57)
[2018-01-28] MEDS: amLODIPine 5 MG TABLET PO SCH (12:57)
[2018-01-28] MEDS: levETIRAcetam 500 MG TABLET PO SCH (12:57)
[2018-01-28] MEDS: FERROUS SULFATE 325 MG TABLET PO SCH (12:57)
[2018-01-28] MEDS: PANTOPRAZOLE 40 MG TABLET PO SCH (12:57)
[2018-01-28] MEDS: MULTIVITAMIN (CENTRUM) TABLET PO SCH (12:57)
[2018-01-28] MEDS: BISACODYL 10 MG SUPP RECTAL SCH (12:58)
[2018-01-28] MEDS: HEPARIN 5,000 UNIT/1 ML VIAL SUBCUT SCH (12:58)
[2018-01-28] MEDS: SERTRALINE 25 MG TABLET PO SCH (12:58)
== END 2018-01-28 13:13 | DRG 463 ==
LOC: N.CC 04:31 → SUATTDRO 04:31 → N.2E 01-24 19:58
PROVIDERS: ADMIT Internal Medicine; ATTEND Internal Medicine

== ENCOUNTER 2018-03-15 13:52 | Inpatient (IN) ==
[2018-03-15 16:19] LABS: ABG Base Excess -3.8 MMOL/L (-2.5-2.5); ABG HCO3 21.3 MMOL/L (20-26); ABG Oxygen Saturation 99.8 % (95-100); ABG PCO2 38.5 MM HG (35-48); ABG PH 7.353 (7.35-7.45); ABG TCO2 20.1 MMOL/L (23-27)
[2018-03-15 17:23] LABS: Hematocrit 23.1 VOL% (35.7-47.0); Hemoglobin 7.5 GM/DL (12.0-16.0); Immature Granulocytes % 0.3 %; Immature Granulocytes Absolute 0.01 #; Lymphocytes # 0.6 10*3/uL (1.4-4.0); Lymphocytes % 20.1 % (21.3-54.2); Mean Corpuscular HGB Conc 32.5 GM/DL (32-36); Mean Corpuscular Hemoglobin 30 PG (27-34); Mean Corpuscular Volume 93.1 FL (87-102); Mean Platelet Volume 11.5 FL (9.6-12.0); Monocytes # 0.1 10*3/uL (0.11-0.8); Monocytes % 4.2 % (1.7-12.7); Neutrophils # 2.3 10*3/uL (1.4-7.4); Neutrophils % 74.4 % (38.7-73.9); Platelet Count 98 T/CUMM (130-400); Red Blood Count 2.48 MC/CUMM (3.8-5.5); Red Cell Distribution Width 13.7 % (9.3-17.3); White Blood Count 3.1 T/CUMM (4-12)
[2018-03-15 17:54] LABS: Osmolality,Calculated 327.8 MOS/KG (273-304); Potassium 4.8 MMOL/L (3.5-5.1)
[2018-03-15] MEDS: PROPOFOL 1,000 MG/100 ML BOTTLE IV SCH (18:01)
[2018-03-15 18:04] LABS: Platelet Estimate Decreased
[2018-03-15] MEDS ORDERED: PHENYTOIN 100 MG/2 ML VIAL IV SCH (18:30)
[2018-03-15 18:46] LABS: Hepatitis A Ab IgM Quant 0.16 Index; Hepatitis A Ab IgM Result Negative (Negative); Hepatitis B Core IgM Quant 0.19 Index; Hepatitis B Core IgM Result Negative (Negative); Hepatitis B Surface Ag Quant < 0.10 Index; Hepatitis B Surface Ag Result Negative (Negative); Hepatitis C Virus Ab Quant 0.17 Index; Hepatitis C Virus Ab Result Negative (Negative)
[2018-03-15] MEDS ORDERED: LORazepam 2 MG/1 ML VIAL IV PRN (20:28)
[2018-03-15] MEDS ORDERED: DEXTROSE 50% 25 GM/50 ML VIAL IV PRN (20:34)
[2018-03-15] MEDS ORDERED: GLUCAGON 1 MG VIAL IM PRN (20:34)
[2018-03-15] MEDS ORDERED: PHENYTOIN 100 MG/4 ML UDCUP PO SCH (21:00)
[2018-03-15] MEDS: DIGOXIN 0.125 MG TABLET PO SCH (21:27)
[2018-03-15] MEDS: ATORVASTATIN 40 MG TABLET PO SCH (21:27)
[2018-03-15] MEDS: LABETALOL 200 MG TABLET PO SCH (23:07)
[2018-03-15] MEDS ORDERED: MORPHINE 4 MG/1 ML VIAL IV ONE (23:53)
[2018-03-16] MEDS: [UNRECOGNIZED DRUG - OTHER] IV SCH ×3 (00:34→22:25)
[2018-03-16] MEDS: SODIUM CHLORIDE IV SCH ×3 (00:34→22:25)
[2018-03-16] MEDS: FOSPHENYTOIN IV SCH ×3 (00:34→22:25)
[2018-03-16] MEDS: INSULIN REGULAR 100 UNIT/ML SUBCUT SCH ×4 (00:34→18:08)
[2018-03-16 02:41] LABS: ABG Base Excess 1.3 MMOL/L (-2.5-2.5); ABG HCO3 25.6 MMOL/L (20-26); ABG Oxygen Saturation 99.9 % (95-100); ABG PCO2 34.1 MM HG (35-48); ABG TCO2 23.3 MMOL/L (23-27); Allen Test Positive; Pt O2 Delivery Device Ventilator
[2018-03-16] MEDS: PROPOFOL 1,000 MG/100 ML BOTTLE IV SCH ×4 (02:52→19:30)
[2018-03-16 05:17] LABS: Basophils % 0.5 % (0.0-0.8); Eosinophils % 0.5 % (0.00-10.9); Hematocrit 19.5 VOL% (35.7-47.0); Hemoglobin 6.6 GM/DL (12.0-16.0); Immature Granulocytes % 0.2 %; Immature Granulocytes Absolute 0.01 #; Lymphocytes # 0.8 10*3/uL (1.4-4.0); Lymphocytes % 19.7 % (21.3-54.2); Mean Corpuscular HGB Conc 33.8 GM/DL (32-36); Mean Corpuscular Hemoglobin 31 PG (27-34); Mean Corpuscular Volume 91.1 FL (87-102); Mean Platelet Volume 11.9 FL (9.6-12.0); Monocytes # 0.2 10*3/uL (0.11-0.8); Neutrophils % 74.1 % (38.7-73.9); Red Blood Count 2.14 MC/CUMM (3.8-5.5)
[2018-03-16 05:27] LABS: Platelet Count 72 T/CUMM (130-400)
[2018-03-16 05:35] LABS: Hypochromasia 1+; Ovalocytes Slight; Platelet Estimate Decreased
[2018-03-16] MEDS ORDERED: SODIUM CHLORIDE 0.9% 1,000 ML IV PRN (05:36)
[2018-03-16 05:53] LABS: Alanine Aminotransferase < 9 U/L (13-56); Albumin 2.2 G/DL (3.4-5.0); Alkaline Phosphatase 124 U/L (45-117); Aspartate Amino Transferase 11 U/L (0-37); Blood Urea Nitrogen 63 MG/DL (7-18); Glucose 108 MG/DL (74-106); Potassium 3.7 MMOL/L (3.5-5.1); Sodium 143 MMOL/L (136-145); Total Protein 5.6 G/DL (6.4-8.3)
[2018-03-16] MEDS: SERTRALINE 25 MG TABLET PO SCH (09:49)
[2018-03-16] MEDS: amLODIPine 5 MG TABLET PO SCH (09:49)
[2018-03-16] MEDS: BISACODYL 10 MG SUPP RECTAL SCH (09:50)
[2018-03-16] MEDS: DONEPEZIL 5 MG TABLET PO SCH (09:50)
[2018-03-16] MEDS: ASPIRIN CHEW 81 MG TABLET PO SCH (09:50)
[2018-03-16] MEDS: FERROUS SULFATE 325 MG TABLET PO SCH (09:50)
[2018-03-16] MEDS: MULTIVITAMIN (CENTRUM) TABLET PO SCH (09:50)
[2018-03-16] MEDS: CALCIUM ACETATE 667 MG CAPSULE PO SCH ×3 (09:50→16:58)
[2018-03-16] MEDS: PANTOPRAZOLE 40 MG VIAL IV SCH (09:51)
[2018-03-16] MEDS: LABETALOL 200 MG TABLET PO SCH ×3 (09:52→21:36)
[2018-03-16] MEDS: FLUTICASONE 50 MCG NASAL SPRAY 16 GM BOTTLE BOTH NARES SCH (11:02)
[2018-03-16] MEDS: INSULIN GLARGINE 100 UNIT/ML SUBCUT SCH (11:02)
[2018-03-16] MEDS: ATORVASTATIN 40 MG TABLET PO SCH (21:36)
[2018-03-17] MEDS: INSULIN REGULAR 100 UNIT/ML SUBCUT SCH ×4 (00:57→18:22)
[2018-03-17] MEDS: PROPOFOL 1,000 MG/100 ML BOTTLE IV SCH ×3 (01:33→18:19)
[2018-03-17 03:35] LABS: Allen Test Positive; Pt O2 Delivery Device Ventilator
[2018-03-17 03:36] LABS: ABG Base Excess 3.9 MMOL/L (-2.5-2.5); ABG HCO3 26.2 MMOL/L (20-26); ABG Oxygen Saturation 98.1 % (95-100); ABG PCO2 31.2 MM HG (35-48); ABG PH 7.542 (7.35-7.45); ABG PO2 120.5 MM HG (80-95); ABG TCO2 27.2 MMOL/L (23-27)
[2018-03-17 05:01] LABS: Basophils % 0.3 % (0.0-0.8); Eosinophils % 0.2 % (0.00-10.9); Hematocrit 26.7 VOL% (35.7-47.0); Immature Granulocytes % 0.2 %; Immature Granulocytes Absolute 0.01 #; Lymphocytes # 0.7 10*3/uL (1.4-4.0); Lymphocytes % 12.3 % (21.3-54.2); Mean Corpuscular HGB Conc 34.8 GM/DL (32-36); Mean Corpuscular Hemoglobin 31 PG (27-34); Mean Corpuscular Volume 88.7 FL (87-102); Mean Platelet Volume 11.8 FL (9.6-12.0); Monocytes # 0.4 10*3/uL (0.11-0.8); Monocytes % 5.8 % (1.7-12.7); Neutrophils # 4.9 10*3/uL (1.4-7.4); Neutrophils % 81.2 % (38.7-73.9); Platelet Count 68 T/CUMM (130-400); Red Blood Count 3.01 MC/CUMM (3.8-5.5); Red Cell Distribution Width 15.2 % (9.3-17.3)
[2018-03-17 05:03] LABS: Hemoglobin 9.3 GM/DL (12.0-16.0)
[2018-03-17 05:33] LABS: Calcium 7.8 MG/DL (8.5-10.1); Osmolality,Calculated 287.3 MOS/KG (273-304); Potassium 3.7 MMOL/L (3.5-5.1)
[2018-03-17 05:45] LABS: Hypochromasia 1+; Ovalocytes Slight; Platelet Estimate Decreased
[2018-03-17] MEDS: PANTOPRAZOLE 40 MG VIAL IV SCH (09:00)
[2018-03-17] MEDS: INSULIN GLARGINE 100 UNIT/ML SUBCUT SCH (09:03)
[2018-03-17] MEDS: LABETALOL 200 MG TABLET PO SCH ×3 (09:04→22:00)
[2018-03-17] MEDS: ASPIRIN CHEW 81 MG TABLET PO SCH (09:05)
[2018-03-17] MEDS: FERROUS SULFATE 325 MG TABLET PO SCH (09:05)
[2018-03-17] MEDS: MULTIVITAMIN (CENTRUM) TABLET PO SCH (09:05)
[2018-03-17] MEDS: DONEPEZIL 5 MG TABLET PO SCH (09:05)
[2018-03-17] MEDS: BISACODYL 10 MG SUPP RECTAL SCH (09:05)
[2018-03-17] MEDS: amLODIPine 5 MG TABLET PO SCH (09:05)
[2018-03-17] MEDS: SERTRALINE 25 MG TABLET PO SCH (09:05)
[2018-03-17] MEDS: CALCIUM ACETATE 667 MG CAPSULE PO SCH ×3 (09:05→18:18)
[2018-03-17] MEDS: FLUTICASONE 50 MCG NASAL SPRAY 16 GM BOTTLE BOTH NARES SCH (09:19)
[2018-03-17] MEDS: SODIUM CHLORIDE IV SCH ×2 (09:48→22:16)
[2018-03-17] MEDS: FOSPHENYTOIN IV SCH ×2 (09:48→22:16)
[2018-03-17] MEDS: [UNRECOGNIZED DRUG - OTHER] IV SCH ×2 (09:48→22:16)
[2018-03-17] MEDS: ATORVASTATIN 40 MG TABLET PO SCH (22:17)
[2018-03-18] MEDS: INSULIN REGULAR 100 UNIT/ML SUBCUT SCH ×4 (00:37→17:57)
[2018-03-18 03:33] LABS: Basophils % 0.2 % (0.0-0.8); Hematocrit 28.9 VOL% (35.7-47.0); Hemoglobin 9.6 GM/DL (12.0-16.0); Immature Granulocytes % 0.3 %; Immature Granulocytes Absolute 0.03 #; Lymphocytes # 0.7 10*3/uL (1.4-4.0); Lymphocytes % 7.2 % (21.3-54.2); Mean Corpuscular HGB Conc 33.2 GM/DL (32-36); Mean Corpuscular Hemoglobin 30 PG (27-34); Mean Corpuscular Volume 89.2 FL (87-102); Mean Platelet Volume 12.8 FL (9.6-12.0); Monocytes # 0.3 10*3/uL (0.11-0.8); Monocytes % 3.5 % (1.7-12.7); Neutrophils % 88.8 % (38.7-73.9); Red Blood Count 3.24 MC/CUMM (3.8-5.5); Red Cell Distribution Width 15.2 % (9.3-17.3)
[2018-03-18 03:38] LABS: Platelet Count 69 T/CUMM (130-400)
[2018-03-18 03:47] LABS: Calcium 7.7 MG/DL (8.5-10.1); Osmolality,Calculated 286.8 MOS/KG (273-304); Potassium 4.3 MMOL/L (3.5-5.1)
[2018-03-18 03:55] LABS: ABG Base Excess 1.7 MMOL/L (-2.5-2.5); ABG HCO3 25.9 MMOL/L (20-26); ABG PCO2 38.9 MM HG (35-48); ABG PH 7.433 (7.35-7.45); ABG TCO2 23.5 MMOL/L (23-27); Allen Test Positive; Pt O2 Delivery Device Ventilator
[2018-03-18 03:58] LABS: Band Neutrophils 15 % (0-10); Lymphocytes 6 % (20-55); Segmented Neutrophils 78 % (50-85); Total Cells Counted 100
[2018-03-18 04:02] LABS: Hypochromasia 1+; Microcytosis 1+; Ovalocytes 1+; Platelet Estimate Decreased
[2018-03-18] MEDS: CALCIUM ACETATE 667 MG CAPSULE PO SCH ×3 (09:12→17:57)
[2018-03-18] MEDS: INSULIN GLARGINE 100 UNIT/ML SUBCUT SCH (09:13)
[2018-03-18] MEDS: PANTOPRAZOLE 40 MG VIAL IV SCH (09:55)
[2018-03-18] MEDS: BISACODYL 10 MG SUPP RECTAL SCH (09:56)
[2018-03-18] MEDS: FOSPHENYTOIN IV SCH ×2 (09:56→20:14)
[2018-03-18] MEDS: FERROUS SULFATE 325 MG TABLET PO SCH (09:56)
[2018-03-18] MEDS: SERTRALINE 25 MG TABLET PO SCH (09:56)
[2018-03-18] MEDS: DONEPEZIL 5 MG TABLET PO SCH (09:56)
[2018-03-18] MEDS: SODIUM CHLORIDE IV SCH ×2 (09:56→20:14)
[2018-03-18] MEDS: [UNRECOGNIZED DRUG - OTHER] IV SCH ×2 (09:56→20:14)
[2018-03-18] MEDS: ASPIRIN CHEW 81 MG TABLET PO SCH (09:56)
[2018-03-18] MEDS: MULTIVITAMIN LIQUID (CENTRUM) 60 ML BOTTLE PO SCH (09:57)
[2018-03-18] MEDS: FLUTICASONE 50 MCG NASAL SPRAY 16 GM BOTTLE BOTH NARES SCH (09:57)
[2018-03-18] MEDS: amLODIPine 5 MG TABLET PO SCH (13:17)
[2018-03-18] MEDS: LABETALOL 200 MG TABLET PO SCH ×2 (13:18→21:19)
[2018-03-18] MEDS: DIGOXIN 0.125 MG TABLET PO SCH (14:03)
[2018-03-18] MEDS: PROPOFOL 1,000 MG/100 ML BOTTLE IV SCH (17:57)
[2018-03-18] MEDS: ATORVASTATIN 40 MG TABLET PO SCH (20:15)
[2018-03-19] MEDS: INSULIN REGULAR 100 UNIT/ML SUBCUT SCH ×4 (00:12→20:33)
[2018-03-19 04:40] LABS: ABG Base Excess 7.2 MMOL/L (-2.5-2.5); ABG HCO3 30.6 MMOL/L (20-26); ABG PCO2 38.6 MM HG (35-48); ABG PH 7.517 (7.35-7.45); ABG PO2 108.6 MM HG (80-95); ABG TCO2 31.8 MMOL/L (23-27)
[2018-03-19 04:49] LABS: Basophils % 0.1 % (0.0-0.8); Eosinophils % 0.1 % (0.00-10.9); Hematocrit 27.4 VOL% (35.7-47.0); Immature Granulocytes % 0.9 %; Immature Granulocytes Absolute 0.07 #; Lymphocytes # 0.6 10*3/uL (1.4-4.0); Lymphocytes % 7.8 % (21.3-54.2); Mean Corpuscular HGB Conc 32.8 GM/DL (32-36); Mean Corpuscular Hemoglobin 30 PG (27-34); Mean Corpuscular Volume 90.7 FL (87-102); Mean Platelet Volume 12.4 FL (9.6-12.0); Monocytes # 0.3 10*3/uL (0.11-0.8); Monocytes % 4.4 % (1.7-12.7); Neutrophils # 6.4 10*3/uL (1.4-7.4); Neutrophils % 86.7 % (38.7-73.9); Platelet Count 83 T/CUMM (130-400); Red Blood Count 3.02 MC/CUMM (3.8-5.5); Red Cell Distribution Width 15.2 % (9.3-17.3); White Blood Count 7.4 T/CUMM (4-12)
[2018-03-19 05:21] LABS: Hypochromasia 1+; Lymphocytes 5 % (20-55); Ovalocytes Slight; Platelet Estimate Decreased; Segmented Neutrophils 89 % (50-85); Total Cells Counted 100
[2018-03-19 05:22] LABS: Microcytosis Slight
[2018-03-19 05:37] LABS: Prealbumin 9.3 MG/DL (20-40)
[2018-03-19 05:48] LABS: Calcium 7.5 MG/DL (8.5-10.1); Osmolality,Calculated 286.4 MOS/KG (273-304); Potassium 4.4 MMOL/L (3.5-5.1)
[2018-03-19] MEDS: FOSPHENYTOIN IV SCH ×2 (09:38→20:34)
[2018-03-19] MEDS: [UNRECOGNIZED DRUG - OTHER] IV SCH ×2 (09:38→20:34)
[2018-03-19] MEDS: SODIUM CHLORIDE IV SCH ×2 (09:38→20:34)
[2018-03-19] MEDS: DONEPEZIL 5 MG TABLET PO SCH (09:38)
[2018-03-19] MEDS: CALCIUM ACETATE 667 MG CAPSULE PO SCH ×3 (09:39→17:52)
[2018-03-19] MEDS: SERTRALINE 25 MG TABLET PO SCH (09:39)
[2018-03-19] MEDS: FERROUS SULFATE 325 MG TABLET PO SCH (09:39)
[2018-03-19] MEDS: LABETALOL 200 MG TABLET PO SCH ×2 (09:39→20:33)
[2018-03-19] MEDS: amLODIPine 5 MG TABLET PO SCH (09:39)
[2018-03-19] MEDS: ASPIRIN CHEW 81 MG TABLET PO SCH (09:40)
[2018-03-19] MEDS: MULTIVITAMIN LIQUID (CENTRUM) 60 ML BOTTLE PO SCH (09:40)
[2018-03-19] MEDS: BISACODYL 10 MG SUPP RECTAL SCH (09:40)
[2018-03-19] MEDS: FLUTICASONE 50 MCG NASAL SPRAY 16 GM BOTTLE BOTH NARES SCH (09:41)
[2018-03-19] MEDS: PANTOPRAZOLE 40 MG VIAL IV SCH (09:55)
[2018-03-19] MEDS: INSULIN GLARGINE 100 UNIT/ML SUBCUT SCH (09:56)
[2018-03-19] MEDS: PROPOFOL 1,000 MG/100 ML BOTTLE IV SCH (20:33)
[2018-03-19] MEDS: ATORVASTATIN 40 MG TABLET PO SCH (20:33)
[2018-03-20] MEDS: INSULIN REGULAR 100 UNIT/ML SUBCUT SCH ×4 (00:10→19:02)
[2018-03-20 04:00] LABS: ABG Base Excess 8.2 MMOL/L (-2.5-2.5); ABG HCO3 32.2 MMOL/L (20-26); ABG Oxygen Saturation 98.2 % (95-100); ABG PCO2 42.7 MM HG (35-48); ABG PH 7.495 (7.35-7.45); ABG PO2 116.6 MM HG (80-95); ABG TCO2 33.5 MMOL/L (23-27); Allen Test Positive; Pt O2 Delivery Device Ventilator
[2018-03-20 05:15] LABS: Basophils % 0.3 % (0.0-0.8); Eosinophils % 0.3 % (0.00-10.9); Hematocrit 25.4 VOL% (35.7-47.0); Hemoglobin 8.3 GM/DL (12.0-16.0); Immature Granulocytes % 0.5 %; Immature Granulocytes Absolute 0.03 #; Lymphocytes # 0.5 10*3/uL (1.4-4.0); Mean Corpuscular HGB Conc 32.7 GM/DL (32-36); Mean Corpuscular Hemoglobin 30 PG (27-34); Mean Platelet Volume 12.2 FL (9.6-12.0); Monocytes # 0.4 10*3/uL (0.11-0.8); Monocytes % 6.5 % (1.7-12.7); Neutrophils # 4.9 10*3/uL (1.4-7.4); Neutrophils % 83.4 % (38.7-73.9); Platelet Count 89 T/CUMM (130-400); Red Blood Count 2.76 MC/CUMM (3.8-5.5); Red Cell Distribution Width 15.4 % (9.3-17.3); White Blood Count 5.9 T/CUMM (4-12)
[2018-03-20 05:37] LABS: Calcium 7.9 MG/DL (8.5-10.1); Osmolality,Calculated 293.4 MOS/KG (273-304); Potassium 5.2 MMOL/L (3.5-5.1)
[2018-03-20 05:41] LABS: Hypochromasia 2+; Ovalocytes Slight
[2018-03-20 05:42] LABS: Microcytosis 1+; Platelet Estimate Decreased
[2018-03-20] MEDS: FLUTICASONE 50 MCG NASAL SPRAY 16 GM BOTTLE BOTH NARES SCH (08:20)
[2018-03-20] MEDS: INSULIN GLARGINE 100 UNIT/ML SUBCUT SCH (08:33)
[2018-03-20] MEDS: PANTOPRAZOLE 40 MG VIAL IV SCH (08:33)
[2018-03-20] MEDS: FERROUS SULFATE 325 MG TABLET PO SCH (08:34)
[2018-03-20] MEDS: CALCIUM ACETATE 667 MG CAPSULE PO SCH ×3 (08:34→19:01)
[2018-03-20] MEDS: LABETALOL 200 MG TABLET PO SCH ×2 (08:34→20:23)
[2018-03-20] MEDS: amLODIPine 5 MG TABLET PO SCH (08:34)
[2018-03-20] MEDS: DONEPEZIL 5 MG TABLET PO SCH (08:34)
[2018-03-20] MEDS: ASPIRIN CHEW 81 MG TABLET PO SCH (08:35)
[2018-03-20] MEDS: SERTRALINE 25 MG TABLET PO SCH (08:35)
[2018-03-20] MEDS: BISACODYL 10 MG SUPP RECTAL SCH (08:35)
[2018-03-20] MEDS: MULTIVITAMIN LIQUID (CENTRUM) 60 ML BOTTLE PO SCH (08:35)
[2018-03-20] MEDS: SODIUM CHLORIDE IV SCH ×2 (09:00→20:27)
[2018-03-20] MEDS: [UNRECOGNIZED DRUG - OTHER] IV SCH ×2 (09:00→20:27)
[2018-03-20] MEDS: FOSPHENYTOIN IV SCH ×2 (09:00→20:27)
[2018-03-20] MEDS ORDERED: ALBUMIN 25% 25 GM in PREMIX 1 EACH IV ONE (11:54)
[2018-03-20] MEDS: DIGOXIN 0.125 MG TABLET PO SCH (12:20)
[2018-03-20] MEDS: PROPOFOL 1,000 MG/100 ML BOTTLE IV SCH (17:50)
[2018-03-20] MEDS: ATORVASTATIN 40 MG TABLET PO SCH (20:23)
[2018-03-21] MEDS: INSULIN REGULAR 100 UNIT/ML SUBCUT SCH ×4 (02:22→18:05)
[2018-03-21 03:55] LABS: ABG Base Excess 6.4 MMOL/L (-2.5-2.5); ABG HCO3 30.3 MMOL/L (20-26); ABG Oxygen Saturation 98.8 % (95-100); ABG PCO2 46.2 MM HG (35-48); ABG PH 7.438 (7.35-7.45); ABG TCO2 29.6 MMOL/L (23-27)
[2018-03-21 06:28] LABS: Basophils % 0.4 % (0.0-0.8); Eosinophils % 0.6 % (0.00-10.9); Hematocrit 18.9 VOL% (35.7-47.0); Immature Granulocytes % 1.3 %; Immature Granulocytes Absolute 0.06 #; Lymphocytes # 0.7 10*3/uL (1.4-4.0); Lymphocytes % 14.4 % (21.3-54.2); Mean Corpuscular HGB Conc 32.8 GM/DL (32-36); Mean Corpuscular Hemoglobin 31 PG (27-34); Mean Corpuscular Volume 95.5 FL (87-102); Mean Platelet Volume 12.5 FL (9.6-12.0); Monocytes # 0.4 10*3/uL (0.11-0.8); Monocytes % 9.3 % (1.7-12.7); Neutrophils # 3.4 10*3/uL (1.4-7.4); Platelet Count 73 T/CUMM (130-400); Red Blood Count 1.98 MC/CUMM (3.8-5.5); White Blood Count 4.6 T/CUMM (4-12)
[2018-03-21 06:34] LABS: Hemoglobin 6.2 GM/DL (12.0-16.0)
[2018-03-21 06:37] LABS: Calcium 7.9 MG/DL (8.5-10.1); Osmolality,Calculated 286.8 MOS/KG (273-304)
[2018-03-21 06:57] LABS: Hypochromasia 1+
[2018-03-21] MEDS: FLUTICASONE 50 MCG NASAL SPRAY 16 GM BOTTLE BOTH NARES SCH (09:46)
[2018-03-21] MEDS: CALCIUM ACETATE 667 MG CAPSULE PO SCH ×3 (10:00→18:04)
[2018-03-21] MEDS: BISACODYL 10 MG SUPP RECTAL SCH (10:00)
[2018-03-21] MEDS: ASPIRIN CHEW 81 MG TABLET PO SCH (10:01)
[2018-03-21] MEDS: FERROUS SULFATE 325 MG TABLET PO SCH (10:01)
[2018-03-21] MEDS: SERTRALINE 25 MG TABLET PO SCH (10:01)
[2018-03-21] MEDS: DONEPEZIL 5 MG TABLET PO SCH (10:01)
[2018-03-21] MEDS: amLODIPine 5 MG TABLET PO SCH (10:01)
[2018-03-21] MEDS: LABETALOL 200 MG TABLET PO SCH ×2 (10:01→20:48)
[2018-03-21] MEDS: PANTOPRAZOLE 40 MG VIAL IV SCH (10:02)
[2018-03-21] MEDS: INSULIN GLARGINE 100 UNIT/ML SUBCUT SCH (10:02)
[2018-03-21] MEDS: MULTIVITAMIN LIQUID (CENTRUM) 60 ML BOTTLE PO SCH (10:04)
[2018-03-21] MEDS: [UNRECOGNIZED DRUG - OTHER] IV SCH ×2 (10:04→20:48)
[2018-03-21] MEDS: SODIUM CHLORIDE IV SCH ×2 (10:04→20:48)
[2018-03-21] MEDS: FOSPHENYTOIN IV SCH ×2 (10:04→20:48)
[2018-03-21] MEDS: SODIUM CHLORIDE 0.9% 1,000 ML IV SCH (11:21)
[2018-03-21] MEDS: PROPOFOL 1,000 MG/100 ML BOTTLE IV SCH (16:15)
[2018-03-21] MEDS: ATORVASTATIN 40 MG TABLET PO SCH (20:48)
[2018-03-22] MEDS: INSULIN REGULAR 100 UNIT/ML SUBCUT SCH ×5 (00:52→23:20)
[2018-03-22 04:03] LABS: ABG Base Excess 5.8 MMOL/L (-2.5-2.5); ABG HCO3 30.3 MMOL/L (20-26); ABG Oxygen Saturation 98.3 % (95-100); ABG PCO2 43.8 MM HG (35-48); ABG PH 7.458 (7.35-7.45); ABG PO2 123.7 MM HG (80-95); ABG TCO2 31.7 MMOL/L (23-27)
[2018-03-22 04:37] LABS: Basophils % 0.3 % (0.0-0.8); Eosinophils # 0.1 10*3/uL (0.0-0.87); Eosinophils % 1.4 % (0.00-10.9); Hematocrit 26.8 VOL% (35.7-47.0); Hemoglobin 8.5 GM/DL (12.0-16.0); Immature Granulocytes % 0.4 %; Immature Granulocytes Absolute 0.03 #; Lymphocytes # 0.6 10*3/uL (1.4-4.0); Lymphocytes % 8.1 % (21.3-54.2); Mean Corpuscular HGB Conc 31.7 GM/DL (32-36); Mean Corpuscular Hemoglobin 28 PG (27-34); Mean Corpuscular Volume 88.4 FL (87-102); Mean Platelet Volume 12.2 FL (9.6-12.0); Monocytes # 0.8 10*3/uL (0.11-0.8); Monocytes % 9.9 % (1.7-12.7); Neutrophils # 6.2 10*3/uL (1.4-7.4); Neutrophils % 79.9 % (38.7-73.9); Platelet Count 86 T/CUMM (130-400); Red Blood Count 3.03 MC/CUMM (3.8-5.5); Red Cell Distribution Width 17.3 % (9.3-17.3); White Blood Count 7.7 T/CUMM (4-12)
[2018-03-22 05:04] LABS: Calcium 7.7 MG/DL (8.5-10.1); Osmolality,Calculated 292.8 MOS/KG (273-304); Potassium 5.5 MMOL/L (3.5-5.1)
[2018-03-22 06:03] LABS: Prealbumin 9.6 MG/DL (20-40)
[2018-03-22 07:48] LABS: Band Neutrophils 1 % (0-10); Eosinophils 2 % (0-10); Hypochromasia 1+; Lymphocytes 8 % (20-55); Platelet Estimate Decreased; Segmented Neutrophils 86 % (50-85); Total Cells Counted 100
[2018-03-22] MEDS: BISACODYL 10 MG SUPP RECTAL SCH (09:12)
[2018-03-22] MEDS: amLODIPine 5 MG TABLET PO SCH (09:13)
[2018-03-22] MEDS: ASPIRIN CHEW 81 MG TABLET PO SCH (09:13)
[2018-03-22] MEDS: CALCIUM ACETATE 667 MG CAPSULE PO SCH ×3 (09:13→17:22)
[2018-03-22] MEDS: FERROUS SULFATE 325 MG TABLET PO SCH (09:13)
[2018-03-22] MEDS: DONEPEZIL 5 MG TABLET PO SCH (09:13)
[2018-03-22] MEDS: SERTRALINE 25 MG TABLET PO SCH (09:13)
[2018-03-22] MEDS: LABETALOL 200 MG TABLET PO SCH ×2 (09:13→20:43)
[2018-03-22] MEDS: INSULIN GLARGINE 100 UNIT/ML SUBCUT SCH (09:14)
[2018-03-22] MEDS: PANTOPRAZOLE 40 MG VIAL IV SCH (09:14)
[2018-03-22] MEDS: FOSPHENYTOIN IV SCH ×2 (09:15→20:42)
[2018-03-22] MEDS: SODIUM CHLORIDE IV SCH ×2 (09:15→20:42)
[2018-03-22] MEDS: [UNRECOGNIZED DRUG - OTHER] IV SCH ×2 (09:15→20:42)
[2018-03-22] MEDS: MULTIVITAMIN LIQUID (CENTRUM) 60 ML BOTTLE PO SCH (09:16)
[2018-03-22] MEDS: SODIUM CHLORIDE 0.9% 1,000 ML IV SCH (11:58)
[2018-03-22] MEDS: FLUTICASONE 50 MCG NASAL SPRAY 16 GM BOTTLE BOTH NARES SCH ×2 (11:58→12:02)
[2018-03-22] MEDS: DIGOXIN 0.125 MG TABLET PO SCH (12:36)
[2018-03-22] MEDS: PROPOFOL 1,000 MG/100 ML BOTTLE IV SCH (16:45)
[2018-03-22] MEDS: ATORVASTATIN 40 MG TABLET PO SCH (20:43)
[2018-03-22] MEDS: GABAPENTIN 100 MG CAPSULE PO PRN (22:02)
[2018-03-23] MEDS: INSULIN REGULAR 100 UNIT/ML SUBCUT SCH ×3 (05:28→18:03)
[2018-03-23 07:16] LABS: ABG Base Excess 6.4 MMOL/L (-2.5-2.5); ABG HCO3 30.3 MMOL/L (20-26); ABG Oxygen Saturation 98.5 % (95-100); ABG PCO2 45.2 MM HG (35-48); ABG PH 7.449 (7.35-7.45); ABG TCO2 28.1 MMOL/L (23-27)
[2018-03-23] MEDS: INSULIN GLARGINE 100 UNIT/ML SUBCUT SCH (09:07)
[2018-03-23] MEDS: MULTIVITAMIN LIQUID (CENTRUM) 60 ML BOTTLE PO SCH (09:07)
[2018-03-23] MEDS: amLODIPine 5 MG TABLET PO SCH (09:08)
[2018-03-23] MEDS: BISACODYL 10 MG SUPP RECTAL SCH (09:08)
[2018-03-23] MEDS: PANTOPRAZOLE 40 MG VIAL IV SCH (09:08)
[2018-03-23] MEDS: CALCIUM ACETATE 667 MG CAPSULE PO SCH ×3 (09:08→18:25)
[2018-03-23] MEDS: FERROUS SULFATE 325 MG TABLET PO SCH (09:09)
[2018-03-23] MEDS: ASPIRIN CHEW 81 MG TABLET PO SCH (09:09)
[2018-03-23] MEDS: DONEPEZIL 5 MG TABLET PO SCH (09:09)
[2018-03-23] MEDS: LABETALOL 200 MG TABLET PO SCH ×2 (09:09→20:01)
[2018-03-23] MEDS: SERTRALINE 25 MG TABLET PO SCH (09:09)
[2018-03-23] MEDS: SODIUM CHLORIDE IV SCH ×2 (09:10→20:02)
[2018-03-23] MEDS: FOSPHENYTOIN IV SCH ×2 (09:10→20:02)
[2018-03-23] MEDS: [UNRECOGNIZED DRUG - OTHER] IV SCH ×2 (09:10→20:02)
[2018-03-23] MEDS: FLUTICASONE 50 MCG NASAL SPRAY 16 GM BOTTLE BOTH NARES SCH (09:11)
[2018-03-23 09:45] LABS: Allen Test Positive; Pt O2 Delivery Device Ventilator
[2018-03-23 09:47] LABS: ABG Base Excess 6.1 MMOL/L (-2.5-2.5); ABG HCO3 30.5 MMOL/L (20-26); ABG Oxygen Saturation 97.8 % (95-100); ABG PH 7.459 (7.35-7.45); ABG PO2 103.1 MM HG (80-95); ABG TCO2 31.9 MMOL/L (23-27)
[2018-03-23] MEDS: SODIUM CHLORIDE 0.9% 1,000 ML IV SCH (12:12)
[2018-03-23] MEDS: PROPOFOL 1,000 MG/100 ML BOTTLE IV SCH (17:39)
[2018-03-23] MEDS: ATORVASTATIN 40 MG TABLET PO SCH (20:02)
[2018-03-23] MEDS: GABAPENTIN 100 MG CAPSULE PO PRN (20:02)
[2018-03-24] MEDS: INSULIN REGULAR 100 UNIT/ML SUBCUT SCH ×5 (01:32→23:43)
[2018-03-24 04:33] LABS: ABG Base Excess 6.4 MMOL/L (-2.5-2.5); ABG HCO3 30.2 MMOL/L (20-26); ABG Oxygen Saturation 98.8 % (95-100); ABG PCO2 46.5 MM HG (35-48); ABG PH 7.438 (7.35-7.45); ABG TCO2 28.7 MMOL/L (23-27); Allen Test Positive; Pt O2 Delivery Device Ventilator
[2018-03-24 04:54] LABS: Basophils % 0.3 % (0.0-0.8); Eosinophils # 0.1 10*3/uL (0.0-0.87); Eosinophils % 0.9 % (0.00-10.9); Immature Granulocytes % 0.4 %; Immature Granulocytes Absolute 0.04 #; Lymphocytes # 0.6 10*3/uL (1.4-4.0); Lymphocytes % 6.6 % (21.3-54.2); Mean Corpuscular HGB Conc 33.3 GM/DL (32-36); Mean Corpuscular Hemoglobin 29 PG (27-34); Mean Platelet Volume 11.4 FL (9.6-12.0); Monocytes # 0.5 10*3/uL (0.11-0.8); Monocytes % 5.3 % (1.7-12.7); Neutrophils # 8.4 10*3/uL (1.4-7.4); Neutrophils % 86.5 % (38.7-73.9); Platelet Count 100 T/CUMM (130-400); Red Blood Count 2.79 MC/CUMM (3.8-5.5); Red Cell Distribution Width 16.1 % (9.3-17.3); White Blood Count 9.7 T/CUMM (4-12)
[2018-03-24 05:38] LABS: Calcium 7.8 MG/DL (8.5-10.1); Osmolality,Calculated 289.1 MOS/KG (273-304); Potassium 5.6 MMOL/L (3.5-5.1)
[2018-03-24 05:43] LABS: Band Neutrophils 2 % (0-10); Hypochromasia 1+; Lymphocytes 5 % (20-55); Microcytosis 1+; Segmented Neutrophils 90 % (50-85); Total Cells Counted 100
[2018-03-24 05:44] LABS: Platelet Estimate Adequate
[2018-03-24] MEDS: ASPIRIN CHEW 81 MG TABLET PO SCH (08:51)
[2018-03-24] MEDS: FERROUS SULFATE 325 MG TABLET PO SCH (08:52)
[2018-03-24] MEDS: DONEPEZIL 5 MG TABLET PO SCH (08:52)
[2018-03-24] MEDS: CALCIUM ACETATE 667 MG CAPSULE PO SCH ×3 (08:52→19:08)
[2018-03-24] MEDS: SERTRALINE 25 MG TABLET PO SCH (08:52)
[2018-03-24] MEDS: LABETALOL 200 MG TABLET PO SCH ×2 (08:52→20:30)
[2018-03-24] MEDS: amLODIPine 5 MG TABLET PO SCH (08:52)
[2018-03-24] MEDS: MULTIVITAMIN LIQUID (CENTRUM) 60 ML BOTTLE PO SCH (08:53)
[2018-03-24] MEDS: PANTOPRAZOLE 40 MG VIAL IV SCH (08:53)
[2018-03-24] MEDS: FOSPHENYTOIN IV SCH ×2 (08:55→20:29)
[2018-03-24] MEDS: SODIUM CHLORIDE IV SCH ×2 (08:55→20:29)
[2018-03-24] MEDS: [UNRECOGNIZED DRUG - OTHER] IV SCH ×2 (08:55→20:29)
[2018-03-24] MEDS: FLUTICASONE 50 MCG NASAL SPRAY 16 GM BOTTLE BOTH NARES SCH (08:56)
[2018-03-24] MEDS: BISACODYL 10 MG SUPP RECTAL SCH (08:56)
[2018-03-24] MEDS: INSULIN GLARGINE 100 UNIT/ML SUBCUT SCH (08:57)
[2018-03-24] MEDS: SODIUM CHLORIDE 0.9% 1,000 ML IV SCH (10:39)
[2018-03-24] MEDS: PROPOFOL 1,000 MG/100 ML BOTTLE IV SCH (18:36)
[2018-03-24] MEDS: ATORVASTATIN 40 MG TABLET PO SCH (20:30)
[2018-03-24] MEDS: GABAPENTIN 100 MG CAPSULE PO PRN (20:30)
[2018-03-25 04:44] LABS: ABG Base Excess 5.2 MMOL/L (-2.5-2.5); ABG HCO3 29.1 MMOL/L (20-26); ABG PCO2 43.9 MM HG (35-48); ABG PH 7.441 (7.35-7.45); ABG PO2 98.5 MM HG (80-95); ABG TCO2 27.5 MMOL/L (23-27); Allen Test Positive; Pt O2 Delivery Device Ventilator
[2018-03-25 05:13] LABS: Prealbumin 12.2 MG/DL (20-40)
[2018-03-25] MEDS: INSULIN REGULAR 100 UNIT/ML SUBCUT SCH ×3 (05:42→19:45)
[2018-03-25 09:12] LABS: ABG Base Excess 0.2 MMOL/L (-2.5-2.5); ABG HCO3 24.6 MMOL/L (20-26); ABG Oxygen Saturation 97.5 % (95-100); ABG TCO2 33.5 MMOL/L (23-27)
[2018-03-25 09:18] LABS: ABG PH 7.058 (7.35-7.45)
[2018-03-25] MEDS ORDERED: SODIUM CHLORIDE 0.9% 1,000 ML IV PRN (09:26)
[2018-03-25] MEDS: CALCIUM ACETATE 667 MG CAPSULE PO SCH (09:28)
[2018-03-25] MEDS: MULTIVITAMIN LIQUID (CENTRUM) 60 ML BOTTLE PO SCH (09:53)
[2018-03-25] MEDS: FERROUS SULFATE 325 MG TABLET PO SCH (09:53)
[2018-03-25] MEDS: DONEPEZIL 5 MG TABLET PO SCH (09:53)
[2018-03-25] MEDS: ASPIRIN CHEW 81 MG TABLET PO SCH (09:53)
[2018-03-25] MEDS: amLODIPine 5 MG TABLET PO SCH (09:54)
[2018-03-25] MEDS: FLUTICASONE 50 MCG NASAL SPRAY 16 GM BOTTLE BOTH NARES SCH (09:54)
[2018-03-25] MEDS: LABETALOL 200 MG TABLET PO SCH ×2 (09:55→22:34)
[2018-03-25] MEDS: SERTRALINE 25 MG TABLET PO SCH (09:55)
[2018-03-25] MEDS: INSULIN GLARGINE 100 UNIT/ML SUBCUT SCH (09:55)
[2018-03-25] MEDS: [UNRECOGNIZED DRUG - OTHER] IV SCH ×2 (10:07→21:43)
[2018-03-25] MEDS: BISACODYL 10 MG SUPP RECTAL SCH (10:07)
[2018-03-25] MEDS: FOSPHENYTOIN IV SCH ×2 (10:07→21:43)
[2018-03-25] MEDS: SODIUM CHLORIDE IV SCH ×2 (10:07→21:43)
[2018-03-25] MEDS: PANTOPRAZOLE 40 MG VIAL IV SCH (10:08)
[2018-03-25 10:58] LABS: ABG Base Excess 1.7 MMOL/L (-2.5-2.5); ABG Oxygen Saturation 99.3 % (95-100); ABG TCO2 29.5 MMOL/L (23-27); Pt O2 Delivery Device BIPAP
[2018-03-25 11:01] LABS: ABG PCO2 76.5 MM HG (35-48)
[2018-03-25] MEDS: DIGOXIN 0.125 MG TABLET PO SCH (14:36)
[2018-03-25] MEDS: ALBUTEROL/IPRATROPIUM 3 ML NEB RESP TX SCH ×2 (15:10→19:55)
[2018-03-25] MEDS: GABAPENTIN 100 MG CAPSULE PO PRN (22:34)
[2018-03-25] MEDS: ATORVASTATIN 40 MG TABLET PO SCH (22:34)
[2018-03-26] MEDS: ALBUTEROL/IPRATROPIUM 3 ML NEB RESP TX SCH ×6 (00:23→19:29)
[2018-03-26] MEDS: INSULIN REGULAR 100 UNIT/ML SUBCUT SCH ×4 (00:27→18:00)
[2018-03-26 03:13] LABS: ABG Base Excess 2.4 MMOL/L (-2.5-2.5); ABG HCO3 27.8 MMOL/L (20-26); ABG Oxygen Saturation 99.4 % (95-100); ABG PCO2 46.4 MM HG (35-48); ABG PH 7.395 (7.35-7.45); ABG PO2 379.8 MM HG (80-95); ABG TCO2 29.2 MMOL/L (23-27); Allen Test Positive; Pt O2 Delivery Device BIPAP
[2018-03-26 07:48] LABS: Basophils % 0.3 % (0.0-0.8); Eosinophils # 0.1 10*3/uL (0.0-0.87); Eosinophils % 0.7 % (0.00-10.9); Hematocrit 33.2 VOL% (35.7-47.0); Immature Granulocytes % 0.6 %; Immature Granulocytes Absolute 0.06 #; Lymphocytes # 0.6 10*3/uL (1.4-4.0); Lymphocytes % 5.5 % (21.3-54.2); Mean Corpuscular HGB Conc 32.5 GM/DL (32-36); Mean Corpuscular Hemoglobin 29 PG (27-34); Mean Corpuscular Volume 88.5 FL (87-102); Monocytes # 0.4 10*3/uL (0.11-0.8); Monocytes % 4.1 % (1.7-12.7); Neutrophils # 9.5 10*3/uL (1.4-7.4); Neutrophils % 88.8 % (38.7-73.9); Platelet Count 141 T/CUMM (130-400); Red Blood Count 3.75 MC/CUMM (3.8-5.5); Red Cell Distribution Width 15.3 % (9.3-17.3); White Blood Count 10.7 T/CUMM (4-12)
[2018-03-26 07:49] LABS: Hemoglobin 10.8 GM/DL (12.0-16.0)
[2018-03-26 08:37] LABS: Bilirubin,Total 1.4 MG/DL (0.2-1.0); Osmolality,Calculated 304.1 MOS/KG (273-304)
[2018-03-26 08:41] LABS: Potassium 6.3 MMOL/L (3.5-5.1)
[2018-03-26] MEDS: LABETALOL 200 MG TABLET PO SCH ×2 (09:44→20:11)
[2018-03-26] MEDS: ASPIRIN CHEW 81 MG TABLET PO SCH (09:44)
[2018-03-26] MEDS: BISACODYL 10 MG SUPP RECTAL SCH (09:44)
[2018-03-26] MEDS: SERTRALINE 25 MG TABLET PO SCH (09:44)
[2018-03-26] MEDS: DONEPEZIL 5 MG TABLET PO SCH (09:45)
[2018-03-26] MEDS: FOSPHENYTOIN IV SCH ×2 (09:45→20:10)
[2018-03-26] MEDS: SODIUM CHLORIDE IV SCH ×2 (09:45→20:10)
[2018-03-26] MEDS: MULTIVITAMIN LIQUID (CENTRUM) 60 ML BOTTLE PO SCH (09:45)
[2018-03-26] MEDS: FERROUS SULFATE 325 MG TABLET PO SCH (09:45)
[2018-03-26] MEDS: amLODIPine 5 MG TABLET PO SCH (09:45)
[2018-03-26] MEDS: [UNRECOGNIZED DRUG - OTHER] IV SCH ×2 (09:45→20:10)
[2018-03-26] MEDS: INSULIN GLARGINE 100 UNIT/ML SUBCUT SCH (09:46)
[2018-03-26] MEDS: FLUTICASONE 50 MCG NASAL SPRAY 16 GM BOTTLE BOTH NARES SCH (09:46)
[2018-03-26] MEDS: PANTOPRAZOLE 40 MG VIAL IV SCH (09:46)
[2018-03-26] MEDS: ATORVASTATIN 40 MG TABLET PO SCH (20:11)
[2018-03-26] MEDS: GABAPENTIN 100 MG CAPSULE PO PRN (20:11)
[2018-03-27] MEDS: ALBUTEROL/IPRATROPIUM 3 ML NEB RESP TX SCH ×7 (00:03→19:05)
[2018-03-27] MEDS: INSULIN REGULAR 100 UNIT/ML SUBCUT SCH ×4 (00:03→18:14)
[2018-03-27] MEDS ORDERED: VECURONIUM 10 MG VIAL IV ONE ×2 (02:40→02:57)
[2018-03-27] MEDS ORDERED: ETOMIDATE 20 MG/10 ML VIAL IV ONE ×2 (02:41→02:57)
[2018-03-27] MEDS ORDERED: NOREPINEPHRINE 4 MG/4 ML VIAL IV ONE ×2 (02:42→02:43)
[2018-03-27] MEDS ORDERED: NOREPINEPHRINE 8 MG in SODIUM CHLORIDE 0.9% 242 ML IV PRN (02:58)
[2018-03-27 03:58] LABS: ABG Base Excess 4.1 MMOL/L (-2.5-2.5); ABG HCO3 28.1 MMOL/L (20-26); ABG Oxygen Saturation 98.7 % (95-100); ABG PCO2 47.3 MM HG (35-48); ABG PH 7.404 (7.35-7.45); ABG TCO2 26.5 MMOL/L (23-27); Allen Test Positive; Pt O2 Delivery Device Ventilator
[2018-03-27] MEDS: PROPOFOL 1,000 MG/100 ML BOTTLE IV SCH (04:06)
[2018-03-27] MEDS ORDERED: ACETAMINOPHEN 325 MG/10.15 ML UDCUP PO PRN (04:23)
[2018-03-27] MEDS ORDERED: LEVOFLOXACIN INJ 750 MG in PREMIX 1 EACH IV ONE (04:30)
[2018-03-27 05:23] LABS: Basophils % 0.5 % (0.0-0.8); Eosinophils % 0.5 % (0.00-10.9); Hematocrit 34.1 VOL% (35.7-47.0); Hemoglobin 11.5 GM/DL (12.0-16.0); Immature Granulocytes % 0.3 %; Immature Granulocytes Absolute 0.02 #; Lymphocytes # 0.1 10*3/uL (1.4-4.0); Lymphocytes % 1.6 % (21.3-54.2); Mean Corpuscular HGB Conc 33.7 GM/DL (32-36); Mean Corpuscular Hemoglobin 30 PG (27-34); Mean Corpuscular Volume 88.1 FL (87-102); Mean Platelet Volume 12.2 FL (9.6-12.0); Monocytes % 0.2 % (1.7-12.7); Neutrophils # 5.9 10*3/uL (1.4-7.4); Neutrophils % 96.9 % (38.7-73.9); Platelet Count 140 T/CUMM (130-400); Red Blood Count 3.87 MC/CUMM (3.8-5.5); Red Cell Distribution Width 15.4 % (9.3-17.3); White Blood Count 6.1 T/CUMM (4-12)
[2018-03-27 05:55] LABS: Band Neutrophils 3 % (0-10); Eosinophils 1 % (0-10); Lymphocytes 1 % (20-55); Segmented Neutrophils 95 % (50-85); Total Cells Counted 100
[2018-03-27 05:56] LABS: Calcium 8.1 MG/DL (8.5-10.1); Hypochromasia 1+; Microcytosis Slight; Osmolality,Calculated 286.8 MOS/KG (273-304); Ovalocytes Slight; Platelet Estimate Normal; Potassium 4.9 MMOL/L (3.5-5.1)
[2018-03-27] MEDS: FOSPHENYTOIN IV SCH ×2 (09:27→20:38)
[2018-03-27] MEDS: SODIUM CHLORIDE IV SCH ×2 (09:27→20:38)
[2018-03-27] MEDS: PANTOPRAZOLE 40 MG VIAL IV SCH (09:27)
[2018-03-27] MEDS: [UNRECOGNIZED DRUG - OTHER] IV SCH ×2 (09:27→20:38)
[2018-03-27] MEDS: FERROUS SULFATE 325 MG TABLET PO SCH (09:28)
[2018-03-27] MEDS: LABETALOL 200 MG TABLET PO SCH ×3 (09:28→21:46)
[2018-03-27] MEDS: amLODIPine 5 MG TABLET PO SCH (09:28)
[2018-03-27] MEDS: DONEPEZIL 5 MG TABLET PO SCH (09:28)
[2018-03-27] MEDS: ASPIRIN CHEW 81 MG TABLET PO SCH (09:28)
[2018-03-27] MEDS: BISACODYL 10 MG SUPP RECTAL SCH (09:28)
[2018-03-27] MEDS: SERTRALINE 25 MG TABLET PO SCH (09:28)
[2018-03-27] MEDS: FLUTICASONE 50 MCG NASAL SPRAY 16 GM BOTTLE BOTH NARES SCH (09:29)
[2018-03-27] MEDS: MULTIVITAMIN LIQUID (CENTRUM) 60 ML BOTTLE PO SCH (09:29)
[2018-03-27] MEDS: INSULIN GLARGINE 100 UNIT/ML SUBCUT SCH (10:14)
[2018-03-27] MEDS ORDERED: NOREPINEPHRINE 16 MG in SODIUM CHLORIDE 0.9% 234 ML IV PRN (11:32)
[2018-03-27] MEDS: DIGOXIN 0.125 MG TABLET PO SCH (15:36)
[2018-03-27] MEDS: MORPHINE 4 MG/1 ML VIAL IV PRN ×2 (15:51→20:36)
[2018-03-27] MEDS: ATORVASTATIN 40 MG TABLET PO SCH (20:37)
[2018-03-28] MEDS: ALBUTEROL/IPRATROPIUM 3 ML NEB RESP TX SCH ×6 (00:15→20:10)
[2018-03-28] MEDS: INSULIN REGULAR 100 UNIT/ML SUBCUT SCH ×4 (00:42→19:10)
[2018-03-28 05:00] LABS: ABG Base Excess 4.7 MMOL/L (-2.5-2.5); ABG HCO3 28.5 MMOL/L (20-26); ABG Oxygen Saturation 98.7 % (95-100); ABG PCO2 39.3 MM HG (35-48); ABG PH 7.478 (7.35-7.45); ABG PO2 151.6 MM HG (80-95); ABG TCO2 29.7 MMOL/L (23-27); Allen Test Positive; Pt O2 Delivery Device Ventilator
[2018-03-28 06:02] LABS: Osmolality,Calculated 286.7 MOS/KG (273-304)
[2018-03-28 06:07] LABS: Basophils % 0.3 % (0.0-0.8); Eosinophils # 0.1 10*3/uL (0.0-0.87); Hematocrit 26.3 VOL% (35.7-47.0); Immature Granulocytes % 0.7 %; Immature Granulocytes Absolute 0.06 #; Lymphocytes # 0.7 10*3/uL (1.4-4.0); Lymphocytes % 7.6 % (21.3-54.2); Mean Corpuscular HGB Conc 33.8 GM/DL (32-36); Mean Corpuscular Hemoglobin 30 PG (27-34); Mean Corpuscular Volume 87.1 FL (87-102); Mean Platelet Volume 12.5 FL (9.6-12.0); Monocytes # 0.5 10*3/uL (0.11-0.8); Monocytes % 5.4 % (1.7-12.7); Neutrophils # 7.7 10*3/uL (1.4-7.4); Platelet Count 133 T/CUMM (130-400); Red Cell Distribution Width 15.2 % (9.3-17.3)
[2018-03-28 06:08] LABS: Hemoglobin 8.9 GM/DL (12.0-16.0); Red Blood Count 3.02 MC/CUMM (3.8-5.5); White Blood Count 9.1 T/CUMM (4-12)
[2018-03-28 06:14] LABS: Band Neutrophils 1 % (0-10); Hypochromasia 1+; Lymphocytes 8 % (20-55); Platelet Estimate Normal; Segmented Neutrophils 83 % (50-85); Total Cells Counted 100
[2018-03-28 06:15] LABS: Giant Platelets Few; Microcytosis Slight; Ovalocytes Slight
[2018-03-28] MEDS: INSULIN GLARGINE 100 UNIT/ML SUBCUT SCH (09:06)
[2018-03-28] MEDS: BISACODYL 10 MG SUPP RECTAL SCH (09:07)
[2018-03-28] MEDS: LABETALOL 200 MG TABLET PO SCH ×2 (09:07→20:21)
[2018-03-28] MEDS: FERROUS SULFATE 325 MG TABLET PO SCH (09:07)
[2018-03-28] MEDS: amLODIPine 5 MG TABLET PO SCH (09:07)
[2018-03-28] MEDS: ASPIRIN CHEW 81 MG TABLET PO SCH (09:07)
[2018-03-28] MEDS: PANTOPRAZOLE 40 MG VIAL IV SCH (09:08)
[2018-03-28] MEDS: DONEPEZIL 5 MG TABLET PO SCH (09:08)
[2018-03-28] MEDS: SERTRALINE 25 MG TABLET PO SCH (09:08)
[2018-03-28] MEDS: [UNRECOGNIZED DRUG - OTHER] IV SCH ×2 (09:09→20:21)
[2018-03-28] MEDS: FLUTICASONE 50 MCG NASAL SPRAY 16 GM BOTTLE BOTH NARES SCH (09:09)
[2018-03-28] MEDS: SODIUM CHLORIDE IV SCH ×2 (09:09→20:21)
[2018-03-28] MEDS: FOSPHENYTOIN IV SCH ×2 (09:09→20:21)
[2018-03-28] MEDS: PROPOFOL 1,000 MG/100 ML BOTTLE IV SCH (09:22)
[2018-03-28] MEDS: MULTIVITAMIN LIQUID (CENTRUM) 60 ML BOTTLE PO SCH (10:47)
[2018-03-28] MEDS ORDERED: VANCOMYCIN INJ 500 MG in SODIUM CHLORIDE 0.9% 100 ML IV PRN (12:12)
[2018-03-28] MEDS ORDERED: VANCOMYCIN INJ 1,500 MG in SODIUM CHLORIDE 0.9% 500 ML IV ONE (13:00)
[2018-03-28] MEDS: ceFAZolin 1,000 MG in SYRINGE 1 EACH IV SCH (18:35)
[2018-03-28] MEDS: ATORVASTATIN 40 MG TABLET PO SCH (20:21)
[2018-03-29] MEDS: ALBUTEROL/IPRATROPIUM 3 ML NEB RESP TX SCH ×7 (00:05→23:14)
[2018-03-29] MEDS: INSULIN REGULAR 100 UNIT/ML SUBCUT SCH ×4 (01:07→17:45)
[2018-03-29 04:38] LABS: ABG Base Excess 4.1 MMOL/L (-2.5-2.5); ABG HCO3 28.5 MMOL/L (20-26); ABG Oxygen Saturation 97.6 % (95-100); ABG PCO2 42.4 MM HG (35-48); ABG PH 7.446 (7.35-7.45); ABG PO2 98.1 MM HG (80-95); ABG TCO2 29.8 MMOL/L (23-27); Allen Test Positive; Pt O2 Delivery Device Ventilator
[2018-03-29 05:30] LABS: Prealbumin 10.9 MG/DL (20-40)
[2018-03-29] MEDS: PROPOFOL 1,000 MG/100 ML BOTTLE IV SCH (06:20)
[2018-03-29] MEDS: LEVOFLOXACIN INJ 500 MG in PREMIX 1 EACH IV SCH (06:24)
[2018-03-29] MEDS: FLUTICASONE 50 MCG NASAL SPRAY 16 GM BOTTLE BOTH NARES SCH (08:59)
[2018-03-29] MEDS ORDERED: SODIUM PHOSPHATE INJ 30 MMOL in SODIUM CHLORIDE 0.9% 250 ML IV ONE (09:00)
[2018-03-29] MEDS: FERROUS SULFATE 325 MG TABLET PO SCH (09:15)
[2018-03-29] MEDS: PANTOPRAZOLE 40 MG VIAL IV SCH (09:15)
[2018-03-29] MEDS: SERTRALINE 25 MG TABLET PO SCH (09:15)
[2018-03-29] MEDS: ASPIRIN CHEW 81 MG TABLET PO SCH (09:15)
[2018-03-29] MEDS: MULTIVITAMIN LIQUID (CENTRUM) 60 ML BOTTLE PO SCH (09:15)
[2018-03-29] MEDS: DONEPEZIL 5 MG TABLET PO SCH (09:15)
[2018-03-29] MEDS: amLODIPine 5 MG TABLET PO SCH (09:16)
[2018-03-29] MEDS: SODIUM CHLORIDE IV SCH ×2 (09:16→20:15)
[2018-03-29] MEDS: [UNRECOGNIZED DRUG - OTHER] IV SCH ×2 (09:16→20:15)
[2018-03-29] MEDS: INSULIN GLARGINE 100 UNIT/ML SUBCUT SCH (09:16)
[2018-03-29] MEDS: FOSPHENYTOIN IV SCH ×2 (09:16→20:15)
[2018-03-29] MEDS: LABETALOL 200 MG TABLET PO SCH ×2 (09:17→20:15)
[2018-03-29] MEDS ORDERED: ALBUMIN 25% 25 GM in PREMIX 1 EACH IV ONE (09:38)
[2018-03-29] MEDS: BISACODYL 10 MG SUPP RECTAL SCH (09:41)
[2018-03-29] MEDS ORDERED: CALCIUM CHLORIDE 1,000 MG in SODIUM CHLORIDE 0.9% 100 ML IV ONE (10:30)
[2018-03-29] MEDS: DIGOXIN 0.125 MG TABLET PO SCH (15:10)
[2018-03-29] MEDS: ceFAZolin 1,000 MG in SYRINGE 1 EACH IV SCH (16:54)
[2018-03-29] MEDS: ATORVASTATIN 40 MG TABLET PO SCH (20:15)
[2018-03-30] MEDS: INSULIN REGULAR 100 UNIT/ML SUBCUT SCH ×5 (01:18→23:56)
[2018-03-30] MEDS: PROPOFOL 1,000 MG/100 ML BOTTLE IV SCH ×3 (02:46→20:30)
[2018-03-30] MEDS: ALBUTEROL/IPRATROPIUM 3 ML NEB RESP TX SCH ×6 (04:25→23:58)
[2018-03-30 04:41] LABS: ABG Base Excess 4.3 MMOL/L (-2.5-2.5); ABG HCO3 29.1 MMOL/L (20-26); ABG Oxygen Saturation 96.6 % (95-100); ABG PCO2 44.9 MM HG (35-48); ABG PO2 86.8 MM HG (80-95); ABG TCO2 30.5 MMOL/L (23-27)
[2018-03-30] MEDS: MULTIVITAMIN LIQUID (CENTRUM) 60 ML BOTTLE PO SCH (09:44)
[2018-03-30] MEDS: BISACODYL 10 MG SUPP RECTAL SCH (09:44)
[2018-03-30] MEDS: amLODIPine 5 MG TABLET PO SCH (09:45)
[2018-03-30] MEDS: DONEPEZIL 5 MG TABLET PO SCH (09:45)
[2018-03-30] MEDS: FERROUS SULFATE 325 MG TABLET PO SCH (09:46)
[2018-03-30] MEDS: ASPIRIN CHEW 81 MG TABLET PO SCH (09:46)
[2018-03-30] MEDS: SERTRALINE 25 MG TABLET PO SCH (09:46)
[2018-03-30] MEDS: PANTOPRAZOLE 40 MG VIAL IV SCH (09:46)
[2018-03-30] MEDS: SODIUM CHLORIDE IV SCH ×2 (09:47→20:31)
[2018-03-30] MEDS: [UNRECOGNIZED DRUG - OTHER] IV SCH ×2 (09:47→20:31)
[2018-03-30] MEDS: FOSPHENYTOIN IV SCH ×2 (09:47→20:31)
[2018-03-30] MEDS: INSULIN GLARGINE 100 UNIT/ML SUBCUT SCH (09:48)
[2018-03-30] MEDS: FLUTICASONE 50 MCG NASAL SPRAY 16 GM BOTTLE BOTH NARES SCH (09:50)
[2018-03-30 10:36] LABS: Albumin 1.7 G/DL (3.4-5.0); Calcium 7.5 MG/DL (8.5-10.1); Osmolality,Calculated 288.8 MOS/KG (273-304); Potassium 3.7 MMOL/L (3.5-5.1)
[2018-03-30] MEDS: LABETALOL 200 MG TABLET PO SCH ×2 (10:40→20:30)
[2018-03-30] MEDS: ceFAZolin 1,000 MG in SYRINGE 1 EACH IV SCH (17:37)
[2018-03-30] MEDS: ATORVASTATIN 40 MG TABLET PO SCH (20:30)
[2018-03-31] MEDS: ALBUTEROL/IPRATROPIUM 3 ML NEB RESP TX SCH ×6 (03:23→23:52)
[2018-03-31 03:29] LABS: Allen Test Positive; Pt O2 Delivery Device Ventilator
[2018-03-31 03:30] LABS: ABG Base Excess 1.9 MMOL/L (-2.5-2.5); ABG HCO3 26.2 MMOL/L (20-26); ABG Oxygen Saturation 98.9 % (95-100); ABG PCO2 43.5 MM HG (35-48)
[2018-03-31 05:37] LABS: Basophils % 0.7 % (0.0-0.8); Eosinophils # 0.1 10*3/uL (0.0-0.87); Eosinophils % 2.4 % (0.00-10.9); Hematocrit 25.1 VOL% (35.7-47.0); Hemoglobin 8.2 GM/DL (12.0-16.0); Immature Granulocytes % 1.3 %; Immature Granulocytes Absolute 0.07 #; Lymphocytes # 0.7 10*3/uL (1.4-4.0); Lymphocytes % 12.8 % (21.3-54.2); Mean Corpuscular HGB Conc 32.7 GM/DL (32-36); Mean Corpuscular Hemoglobin 29 PG (27-34); Mean Corpuscular Volume 88.7 FL (87-102); Mean Platelet Volume 11.1 FL (9.6-12.0); Monocytes # 0.4 10*3/uL (0.11-0.8); Monocytes % 7.8 % (1.7-12.7); Neutrophils # 4.2 10*3/uL (1.4-7.4); Platelet Count 241 T/CUMM (130-400); Red Blood Count 2.83 MC/CUMM (3.8-5.5); Red Cell Distribution Width 14.7 % (9.3-17.3); White Blood Count 5.5 T/CUMM (4-12)
[2018-03-31 06:05] LABS: Calcium 7.6 MG/DL (8.5-10.1); Osmolality,Calculated 289.1 MOS/KG (273-304); Potassium 4.3 MMOL/L (3.5-5.1)
[2018-03-31] MEDS: LEVOFLOXACIN INJ 500 MG in PREMIX 1 EACH IV SCH (06:30)
[2018-03-31] MEDS: INSULIN REGULAR 100 UNIT/ML SUBCUT SCH ×3 (06:31→17:54)
[2018-03-31 06:32] LABS: Albumin 1.7 G/DL (3.4-5.0); Calcium 7.9 MG/DL (8.5-10.1); Osmolality,Calculated 288.1 MOS/KG (273-304); Potassium 4.3 MMOL/L (3.5-5.1)
[2018-03-31] MEDS: FLUTICASONE 50 MCG NASAL SPRAY 16 GM BOTTLE BOTH NARES SCH (08:34)
[2018-03-31] MEDS: BISACODYL 10 MG SUPP RECTAL SCH (08:51)
[2018-03-31] MEDS: FERROUS SULFATE 325 MG TABLET PO SCH (08:51)
[2018-03-31] MEDS: amLODIPine 5 MG TABLET PO SCH (08:51)
[2018-03-31] MEDS: SERTRALINE 25 MG TABLET PO SCH (08:51)
[2018-03-31] MEDS: LABETALOL 200 MG TABLET PO SCH ×2 (08:51→20:19)
[2018-03-31] MEDS: ASPIRIN CHEW 81 MG TABLET PO SCH (08:51)
[2018-03-31] MEDS: DONEPEZIL 5 MG TABLET PO SCH (08:51)
[2018-03-31] MEDS: INSULIN GLARGINE 100 UNIT/ML SUBCUT SCH (08:51)
[2018-03-31] MEDS: SODIUM CHLORIDE IV SCH ×2 (08:54→20:19)
[2018-03-31] MEDS: FOSPHENYTOIN IV SCH ×2 (08:54→20:19)
[2018-03-31] MEDS: [UNRECOGNIZED DRUG - OTHER] IV SCH ×2 (08:54→20:19)
[2018-03-31] MEDS: PANTOPRAZOLE 40 MG VIAL IV SCH (08:56)
[2018-03-31] MEDS: MULTIVITAMIN LIQUID (CENTRUM) 60 ML BOTTLE PO SCH (09:11)
[2018-03-31] MEDS: PROPOFOL 1,000 MG/100 ML BOTTLE IV SCH ×2 (10:12→20:18)
[2018-03-31] MEDS: ceFAZolin 1,000 MG in SYRINGE 1 EACH IV SCH (17:14)
[2018-03-31] MEDS: ATORVASTATIN 40 MG TABLET PO SCH (20:19)
[2018-04-01] MEDS: INSULIN REGULAR 100 UNIT/ML SUBCUT SCH ×4 (01:37→18:14)
[2018-04-01 03:19] LABS: ABG HCO3 25.3 MMOL/L (20-26); ABG Oxygen Saturation 98.3 % (95-100); ABG PCO2 39.1 MM HG (35-48); ABG PH 7.429 (7.35-7.45); ABG PO2 124.6 MM HG (80-95); ABG TCO2 26.5 MMOL/L (23-27); Allen Test Positive; Pt O2 Delivery Device Ventilator
[2018-04-01] MEDS: ALBUTEROL/IPRATROPIUM 3 ML NEB RESP TX SCH ×5 (03:54→19:48)
[2018-04-01 04:35] LABS: Albumin 1.6 G/DL (3.4-5.0); Calcium 7.7 MG/DL (8.5-10.1); Osmolality,Calculated 292.5 MOS/KG (273-304); Potassium 4.2 MMOL/L (3.5-5.1)
[2018-04-01] MEDS: PROPOFOL 1,000 MG/100 ML BOTTLE IV SCH ×2 (07:45→17:01)
[2018-04-01] MEDS: MULTIVITAMIN LIQUID (CENTRUM) 60 ML BOTTLE PO SCH (09:10)
[2018-04-01] MEDS: INSULIN GLARGINE 100 UNIT/ML SUBCUT SCH (09:10)
[2018-04-01] MEDS: DONEPEZIL 5 MG TABLET PO SCH (09:11)
[2018-04-01] MEDS: amLODIPine 5 MG TABLET PO SCH (09:11)
[2018-04-01] MEDS: LABETALOL 200 MG TABLET PO SCH ×2 (09:11→20:38)
[2018-04-01] MEDS: ASPIRIN CHEW 81 MG TABLET PO SCH (09:11)
[2018-04-01] MEDS: FERROUS SULFATE 325 MG TABLET PO SCH (09:11)
[2018-04-01] MEDS: SERTRALINE 25 MG TABLET PO SCH (09:11)
[2018-04-01] MEDS: PANTOPRAZOLE 40 MG VIAL IV SCH (09:12)
[2018-04-01] MEDS: BISACODYL 10 MG SUPP RECTAL SCH (09:14)
[2018-04-01] MEDS: SODIUM CHLORIDE IV SCH (09:14)
[2018-04-01] MEDS: FOSPHENYTOIN IV SCH (09:14)
[2018-04-01] MEDS: [UNRECOGNIZED DRUG - OTHER] IV SCH (09:14)
[2018-04-01] MEDS: FLUTICASONE 50 MCG NASAL SPRAY 16 GM BOTTLE BOTH NARES SCH (09:15)
[2018-04-01] MEDS: DIGOXIN 0.125 MG TABLET PO SCH (15:06)
[2018-04-01] MEDS: ceFAZolin 1,000 MG in SYRINGE 1 EACH IV SCH (16:59)
[2018-04-01] MEDS: PHENYTOIN 100 MG/4 ML UDCUP PER TUBE SCH (20:37)
[2018-04-01] MEDS: ATORVASTATIN 40 MG TABLET PO SCH (20:38)
[2018-04-02] MEDS: ALBUTEROL/IPRATROPIUM 3 ML NEB RESP TX SCH ×6 (00:21→19:10)
[2018-04-02] MEDS: INSULIN REGULAR 100 UNIT/ML SUBCUT SCH ×4 (01:03→17:48)
[2018-04-02] MEDS: PROPOFOL 1,000 MG/100 ML BOTTLE IV SCH ×2 (05:15→16:57)
[2018-04-02 05:16] LABS: Albumin 1.7 G/DL (3.4-5.0); Calcium 7.6 MG/DL (8.5-10.1); Osmolality,Calculated 284.4 MOS/KG (273-304); Potassium 4.3 MMOL/L (3.5-5.1)
[2018-04-02] MEDS: MULTIVITAMIN LIQUID (CENTRUM) 60 ML BOTTLE PO SCH (09:06)
[2018-04-02] MEDS: FLUTICASONE 50 MCG NASAL SPRAY 16 GM BOTTLE BOTH NARES SCH (09:06)
[2018-04-02] MEDS: INSULIN GLARGINE 100 UNIT/ML SUBCUT SCH (09:07)
[2018-04-02] MEDS: ASPIRIN CHEW 81 MG TABLET PO SCH (09:07)
[2018-04-02] MEDS: amLODIPine 5 MG TABLET PO SCH (09:08)
[2018-04-02] MEDS: LABETALOL 200 MG TABLET PO SCH ×2 (09:08→20:34)
[2018-04-02] MEDS: PANTOPRAZOLE 40 MG VIAL IV SCH (09:08)
[2018-04-02] MEDS: BISACODYL 10 MG SUPP RECTAL SCH (09:08)
[2018-04-02] MEDS: SERTRALINE 25 MG TABLET PO SCH (09:08)
[2018-04-02] MEDS: PHENYTOIN 100 MG/4 ML UDCUP PER TUBE SCH ×2 (09:08→20:36)
[2018-04-02] MEDS: FERROUS SULFATE 325 MG TABLET PO SCH (09:09)
[2018-04-02] MEDS: DONEPEZIL 5 MG TABLET PO SCH (09:10)
[2018-04-02] MEDS: levETIRAcetam LIQUID 100 MG/ML 30 ML/BOTTLE PER TUBE SCH ×2 (09:29→20:35)
[2018-04-02] MEDS: ceFAZolin 1,000 MG in SYRINGE 1 EACH IV SCH (16:56)
[2018-04-02] MEDS: ATORVASTATIN 40 MG TABLET PO SCH (20:36)
[2018-04-03] MEDS: ALBUTEROL/IPRATROPIUM 3 ML NEB RESP TX SCH ×7 (00:14→23:58)
[2018-04-03] MEDS: INSULIN REGULAR 100 UNIT/ML SUBCUT SCH ×4 (01:33→17:45)
[2018-04-03 04:05] LABS: Calcium 7.7 MG/DL (8.5-10.1); Osmolality,Calculated 288.5 MOS/KG (273-304); Potassium 4.3 MMOL/L (3.5-5.1)
[2018-04-03] MEDS: PROPOFOL 1,000 MG/100 ML BOTTLE IV SCH (04:30)
[2018-04-03 04:44] LABS: ABG HCO3 25.3 MMOL/L (20-26); ABG Oxygen Saturation 98.6 % (95-100); ABG PCO2 41.4 MM HG (35-48); ABG PH 7.402 (7.35-7.45); ABG TCO2 24.1 MMOL/L (23-27); Allen Test Positive; Pt O2 Delivery Device Ventilator
[2018-04-03] MEDS: FLUTICASONE 50 MCG NASAL SPRAY 16 GM BOTTLE BOTH NARES SCH (08:55)
[2018-04-03] MEDS: PHENYTOIN 100 MG/4 ML UDCUP PER TUBE SCH ×2 (09:10→20:15)
[2018-04-03] MEDS: DONEPEZIL 5 MG TABLET PO SCH (09:12)
[2018-04-03] MEDS: FERROUS SULFATE 325 MG TABLET PO SCH (09:12)
[2018-04-03] MEDS: PANTOPRAZOLE 40 MG VIAL IV SCH (09:12)
[2018-04-03] MEDS: INSULIN GLARGINE 100 UNIT/ML SUBCUT SCH (09:12)
[2018-04-03] MEDS: amLODIPine 5 MG TABLET PO SCH (09:13)
[2018-04-03] MEDS: SERTRALINE 25 MG TABLET PO SCH (09:13)
[2018-04-03] MEDS: ASPIRIN CHEW 81 MG TABLET PO SCH (09:13)
[2018-04-03] MEDS: LABETALOL 200 MG TABLET PO SCH ×2 (09:13→20:15)
[2018-04-03] MEDS: BISACODYL 10 MG SUPP RECTAL SCH (09:13)
[2018-04-03] MEDS: MULTIVITAMIN LIQUID (CENTRUM) 60 ML BOTTLE PO SCH (09:16)
[2018-04-03] MEDS: levETIRAcetam LIQUID 100 MG/ML 30 ML/BOTTLE PER TUBE SCH ×2 (09:16→20:15)
[2018-04-03] MEDS: DIGOXIN 0.125 MG TABLET PO SCH (14:02)
[2018-04-03] MEDS: NAFCILLIN 2,000 MG in SODIUM CHLORIDE 0.9% 100 ML IV SCH ×3 (14:02→20:36)
[2018-04-03] MEDS: ATORVASTATIN 40 MG TABLET PO SCH (20:15)
[2018-04-04] MEDS: INSULIN REGULAR 100 UNIT/ML SUBCUT SCH ×4 (00:17→18:26)
[2018-04-04] MEDS: NAFCILLIN 2,000 MG in SODIUM CHLORIDE 0.9% 100 ML IV SCH ×6 (01:06→22:28)
[2018-04-04 02:58] LABS: ABG Base Excess 0.3 MMOL/L (-2.5-2.5); ABG HCO3 24.7 MMOL/L (20-26); ABG Oxygen Saturation 99.3 % (95-100); ABG PH 7.419 (7.35-7.45); Allen Test Positive; Pt O2 Delivery Device Ventilator
[2018-04-04] MEDS: ALBUTEROL/IPRATROPIUM 3 ML NEB RESP TX SCH ×6 (03:45→23:51)
[2018-04-04] MEDS: PROPOFOL 1,000 MG/100 ML BOTTLE IV SCH (05:59)
[2018-04-04] MEDS: FLUTICASONE 50 MCG NASAL SPRAY 16 GM BOTTLE BOTH NARES SCH (09:14)
[2018-04-04] MEDS: INSULIN GLARGINE 100 UNIT/ML SUBCUT SCH (09:25)
[2018-04-04] MEDS: PANTOPRAZOLE 40 MG VIAL IV SCH (09:25)
[2018-04-04] MEDS: BISACODYL 10 MG SUPP RECTAL SCH (09:26)
[2018-04-04] MEDS: levETIRAcetam LIQUID 100 MG/ML 30 ML/BOTTLE PER TUBE SCH ×2 (09:27→22:28)
[2018-04-04] MEDS: DONEPEZIL 5 MG TABLET PO SCH (09:27)
[2018-04-04] MEDS: PHENYTOIN 100 MG/4 ML UDCUP PER TUBE SCH ×2 (09:27→22:28)
[2018-04-04] MEDS: ASPIRIN CHEW 81 MG TABLET PO SCH (09:27)
[2018-04-04] MEDS: FERROUS SULFATE 325 MG TABLET PO SCH (09:27)
[2018-04-04] MEDS: SERTRALINE 25 MG TABLET PO SCH (09:27)
[2018-04-04] MEDS: LABETALOL 200 MG TABLET PO SCH ×2 (09:27→22:28)
[2018-04-04] MEDS: amLODIPine 5 MG TABLET PO SCH (09:27)
[2018-04-04] MEDS: MULTIVITAMIN LIQUID (CENTRUM) 60 ML BOTTLE PO SCH (09:28)
[2018-04-04] MEDS: ATORVASTATIN 40 MG TABLET PO SCH (22:28)
[2018-04-05] MEDS: INSULIN REGULAR 100 UNIT/ML SUBCUT SCH ×4 (00:47→18:02)
[2018-04-05] MEDS: NAFCILLIN 2,000 MG in SODIUM CHLORIDE 0.9% 100 ML IV SCH ×6 (02:24→20:30)
[2018-04-05] MEDS: ALBUTEROL/IPRATROPIUM 3 ML NEB RESP TX SCH ×6 (03:35→23:33)
[2018-04-05 03:43] LABS: ABG Base Excess 0.1 MMOL/L (-2.5-2.5); ABG HCO3 24.5 MMOL/L (20-26); ABG Oxygen Saturation 98.8 % (95-100); ABG PH 7.416 (7.35-7.45); ABG TCO2 22.5 MMOL/L (23-27); Allen Test Positive; Pt O2 Delivery Device Ventilator
[2018-04-05 05:36] LABS: Osmolality,Calculated 293.7 MOS/KG (273-304); Potassium 4.9 MMOL/L (3.5-5.1)
[2018-04-05 06:09] LABS: Prealbumin 22.1 MG/DL (20-40)
[2018-04-05] MEDS: PROPOFOL 1,000 MG/100 ML BOTTLE IV SCH (06:35)
[2018-04-05] MEDS: MULTIVITAMIN LIQUID (CENTRUM) 60 ML BOTTLE PO SCH (10:29)
[2018-04-05] MEDS: LABETALOL 200 MG TABLET PO SCH ×2 (10:29→20:24)
[2018-04-05] MEDS: amLODIPine 5 MG TABLET PO SCH (10:30)
[2018-04-05] MEDS: PHENYTOIN 100 MG/4 ML UDCUP PER TUBE SCH ×2 (10:30→20:24)
[2018-04-05] MEDS: FERROUS SULFATE 325 MG TABLET PO SCH (10:30)
[2018-04-05] MEDS: BISACODYL 10 MG SUPP RECTAL SCH (10:30)
[2018-04-05] MEDS: ASPIRIN CHEW 81 MG TABLET PO SCH (10:32)
[2018-04-05] MEDS: DONEPEZIL 5 MG TABLET PO SCH (10:33)
[2018-04-05] MEDS: SERTRALINE 25 MG TABLET PO SCH (10:33)
[2018-04-05] MEDS: INSULIN GLARGINE 100 UNIT/ML SUBCUT SCH (10:33)
[2018-04-05] MEDS: PANTOPRAZOLE 40 MG VIAL IV SCH (10:33)
[2018-04-05] MEDS: FLUTICASONE 50 MCG NASAL SPRAY 16 GM BOTTLE BOTH NARES SCH (11:29)
[2018-04-05] MEDS: levETIRAcetam LIQUID 100 MG/ML 30 ML/BOTTLE PER TUBE SCH ×2 (11:31→20:25)
[2018-04-05] MEDS: DIGOXIN 0.125 MG TABLET PO SCH (14:56)
[2018-04-05] MEDS: ATORVASTATIN 40 MG TABLET PO SCH (20:24)
[2018-04-06] MEDS: INSULIN REGULAR 100 UNIT/ML SUBCUT SCH ×4 (00:10→17:45)
[2018-04-06] MEDS: NAFCILLIN 2,000 MG in SODIUM CHLORIDE 0.9% 100 ML IV SCH ×6 (01:49→20:42)
[2018-04-06] MEDS: PROPOFOL 1,000 MG/100 ML BOTTLE IV SCH (03:57)
[2018-04-06] MEDS: ALBUTEROL/IPRATROPIUM 3 ML NEB RESP TX SCH ×5 (04:25→20:02)
[2018-04-06 04:52] LABS: ABG Base Excess -0.7 MMOL/L (-2.5-2.5); ABG HCO3 23.8 MMOL/L (20-26); ABG Oxygen Saturation 99.1 % (95-100); ABG PCO2 39.1 MM HG (35-48); ABG PH 7.395 (7.35-7.45); ABG TCO2 22.5 MMOL/L (23-27); Allen Test Positive; Pt O2 Delivery Device Ventilator
[2018-04-06 05:15] LABS: Basophils # 0.1 10*3/uL (0.0-0.2); Basophils % 0.8 % (0.0-0.8); Eosinophils # 0.1 10*3/uL (0.0-0.87); Eosinophils % 2.1 % (0.00-10.9); Hematocrit 21.6 VOL% (35.7-47.0); Hemoglobin 7.2 GM/DL (12.0-16.0); Immature Granulocytes Absolute 0.13 #; Lymphocytes % 14.9 % (21.3-54.2); Mean Corpuscular HGB Conc 33.3 GM/DL (32-36); Mean Corpuscular Hemoglobin 29 PG (27-34); Mean Corpuscular Volume 87.8 FL (87-102); Mean Platelet Volume 9.7 FL (9.6-12.0); Monocytes # 0.5 10*3/uL (0.11-0.8); Monocytes % 7.1 % (1.7-12.7); Neutrophils # 4.9 10*3/uL (1.4-7.4); Neutrophils % 73.1 % (38.7-73.9); Platelet Count 323 T/CUMM (130-400); Red Blood Count 2.46 MC/CUMM (3.8-5.5); Red Cell Distribution Width 15.5 % (9.3-17.3); White Blood Count 6.6 T/CUMM (4-12)
[2018-04-06 05:23] LABS: Calcium 7.6 MG/DL (8.5-10.1); Osmolality,Calculated 297.8 MOS/KG (273-304)
[2018-04-06] MEDS: MULTIVITAMIN LIQUID (CENTRUM) 60 ML BOTTLE PO SCH (09:56)
[2018-04-06] MEDS: INSULIN GLARGINE 100 UNIT/ML SUBCUT SCH (09:56)
[2018-04-06] MEDS: PHENYTOIN 100 MG/4 ML UDCUP PER TUBE SCH ×2 (09:57→20:42)
[2018-04-06] MEDS: LABETALOL 200 MG TABLET PO SCH ×2 (09:57→20:42)
[2018-04-06] MEDS: ASPIRIN CHEW 81 MG TABLET PO SCH (09:57)
[2018-04-06] MEDS: BISACODYL 10 MG SUPP RECTAL SCH (09:57)
[2018-04-06] MEDS: DONEPEZIL 5 MG TABLET PO SCH (09:58)
[2018-04-06] MEDS: PANTOPRAZOLE 40 MG VIAL IV SCH (09:58)
[2018-04-06] MEDS: FERROUS SULFATE 325 MG TABLET PO SCH (09:58)
[2018-04-06] MEDS: amLODIPine 5 MG TABLET PO SCH (09:58)
[2018-04-06] MEDS: SERTRALINE 25 MG TABLET PO SCH (09:58)
[2018-04-06] MEDS: FLUTICASONE 50 MCG NASAL SPRAY 16 GM BOTTLE BOTH NARES SCH (09:59)
[2018-04-06] MEDS: levETIRAcetam LIQUID 100 MG/ML 30 ML/BOTTLE PER TUBE SCH ×2 (09:59→20:43)
[2018-04-06] MEDS: ATORVASTATIN 40 MG TABLET PO SCH (20:42)
[2018-04-07] MEDS: INSULIN REGULAR 100 UNIT/ML SUBCUT SCH ×5 (00:08→23:43)
[2018-04-07] MEDS: ALBUTEROL/IPRATROPIUM 3 ML NEB RESP TX SCH ×7 (00:19→23:45)
[2018-04-07] MEDS: NAFCILLIN 2,000 MG in SODIUM CHLORIDE 0.9% 100 ML IV SCH ×2 (01:42→05:01)
[2018-04-07] MEDS: PROPOFOL 1,000 MG/100 ML BOTTLE IV SCH (03:49)
[2018-04-07 05:30] LABS: Basophils # 0.1 10*3/uL (0.0-0.2); Basophils % 0.8 % (0.0-0.8); Eosinophils # 0.2 10*3/uL (0.0-0.87); Eosinophils % 1.9 % (0.00-10.9); Hemoglobin 8.2 GM/DL (12.0-16.0); Immature Granulocytes % 1.3 %; Immature Granulocytes Absolute 0.11 #; Lymphocytes % 11.5 % (21.3-54.2); Mean Corpuscular HGB Conc 34.2 GM/DL (32-36); Mean Corpuscular Hemoglobin 29 PG (27-34); Mean Corpuscular Volume 85.7 FL (87-102); Mean Platelet Volume 9.5 FL (9.6-12.0); Monocytes # 0.6 10*3/uL (0.11-0.8); Monocytes % 6.7 % (1.7-12.7); Neutrophils # 6.7 10*3/uL (1.4-7.4); Neutrophils % 77.8 % (38.7-73.9); Platelet Count 361 T/CUMM (130-400); Red Cell Distribution Width 15.4 % (9.3-17.3); White Blood Count 8.5 T/CUMM (4-12)
[2018-04-07 05:51] LABS: Calcium 7.7 MG/DL (8.5-10.1); Osmolality,Calculated 305.7 MOS/KG (273-304); Potassium 4.9 MMOL/L (3.5-5.1)
[2018-04-07] MEDS: INSULIN GLARGINE 100 UNIT/ML SUBCUT SCH (09:56)
[2018-04-07] MEDS: amLODIPine 5 MG TABLET PO SCH (09:57)
[2018-04-07] MEDS: PANTOPRAZOLE 40 MG TABLET PO SCH (09:57)
[2018-04-07] MEDS: PHENYTOIN ER 100 MG CAPSULE PO SCH ×2 (09:57→20:51)
[2018-04-07] MEDS: levETIRAcetam 500 MG TABLET PO SCH ×2 (09:57→20:51)
[2018-04-07] MEDS: AMOXICILLIN/CLAV 500 MG TABLET PO SCH ×2 (09:58→20:51)
[2018-04-07] MEDS: FERROUS SULFATE 325 MG TABLET PO SCH (09:58)
[2018-04-07] MEDS: LABETALOL 200 MG TABLET PO SCH ×2 (09:58→20:51)
[2018-04-07] MEDS: DONEPEZIL 5 MG TABLET PO SCH (09:58)
[2018-04-07] MEDS: SERTRALINE 25 MG TABLET PO SCH (09:58)
[2018-04-07] MEDS: ASPIRIN CHEW 81 MG TABLET PO SCH (09:58)
[2018-04-07] MEDS: BISACODYL 10 MG SUPP RECTAL SCH (09:59)
[2018-04-07] MEDS: FLUTICASONE 50 MCG NASAL SPRAY 16 GM BOTTLE BOTH NARES SCH (09:59)
[2018-04-07] MEDS: MULTIVITAMIN LIQUID (CENTRUM) 60 ML BOTTLE PO SCH (09:59)
[2018-04-07] MEDS: ATORVASTATIN 40 MG TABLET PO SCH (20:51)
[2018-04-08] MEDS: ALBUTEROL/IPRATROPIUM 3 ML NEB RESP TX SCH ×6 (03:25→23:19)
[2018-04-08] MEDS: INSULIN REGULAR 100 UNIT/ML SUBCUT SCH ×4 (06:17→23:47)
[2018-04-08 08:02] LABS: Prealbumin 23.3 MG/DL (20-40)
[2018-04-08] MEDS: INSULIN GLARGINE 100 UNIT/ML SUBCUT SCH (10:28)
[2018-04-08] MEDS: FLUTICASONE 50 MCG NASAL SPRAY 16 GM BOTTLE BOTH NARES SCH (10:28)
[2018-04-08] MEDS: SERTRALINE 25 MG TABLET PO SCH (10:29)
[2018-04-08] MEDS: levETIRAcetam 500 MG TABLET PO SCH ×2 (10:29→22:09)
[2018-04-08] MEDS: ASPIRIN CHEW 81 MG TABLET PO SCH (10:29)
[2018-04-08] MEDS: amLODIPine 5 MG TABLET PO SCH (10:29)
[2018-04-08] MEDS: AMOXICILLIN/CLAV 500 MG TABLET PO SCH ×2 (10:30→22:09)
[2018-04-08] MEDS: LABETALOL 200 MG TABLET PO SCH ×2 (10:30→22:09)
[2018-04-08] MEDS: PHENYTOIN ER 100 MG CAPSULE PO SCH ×2 (10:30→22:09)
[2018-04-08] MEDS: DONEPEZIL 5 MG TABLET PO SCH (10:30)
[2018-04-08] MEDS: PANTOPRAZOLE 40 MG TABLET PO SCH (10:34)
[2018-04-08] MEDS: FERROUS SULFATE 325 MG TABLET PO SCH (10:34)
[2018-04-08] MEDS: MULTIVITAMIN LIQUID (CENTRUM) 60 ML BOTTLE PO SCH (10:34)
[2018-04-08] MEDS: BISACODYL 10 MG SUPP RECTAL SCH (10:34)
[2018-04-08] MEDS: DIGOXIN 0.125 MG TABLET PO SCH (16:01)
[2018-04-08] MEDS: ATORVASTATIN 40 MG TABLET PO SCH (22:09)
[2018-04-09] MEDS: ALBUTEROL/IPRATROPIUM 3 ML NEB RESP TX SCH ×6 (02:45→23:56)
[2018-04-09] MEDS: INSULIN REGULAR 100 UNIT/ML SUBCUT SCH ×3 (06:07→18:00)
[2018-04-09] MEDS: INSULIN GLARGINE 100 UNIT/ML SUBCUT SCH (09:59)
[2018-04-09] MEDS: LABETALOL 200 MG TABLET PO SCH (10:00)
[2018-04-09] MEDS: SERTRALINE 25 MG TABLET PO SCH (10:00)
[2018-04-09] MEDS: PHENYTOIN ER 100 MG CAPSULE PO SCH (10:00)
[2018-04-09] MEDS: ASPIRIN CHEW 81 MG TABLET PO SCH (10:00)
[2018-04-09] MEDS: AMOXICILLIN/CLAV 500 MG TABLET PO SCH (10:00)
[2018-04-09] MEDS: DONEPEZIL 5 MG TABLET PO SCH (10:00)
[2018-04-09] MEDS: amLODIPine 5 MG TABLET PO SCH (10:01)
[2018-04-09] MEDS: levETIRAcetam 500 MG TABLET PO SCH (10:01)
[2018-04-09] MEDS: PANTOPRAZOLE 40 MG TABLET PO SCH (10:01)
[2018-04-09] MEDS: FERROUS SULFATE 325 MG TABLET PO SCH (10:01)
[2018-04-09] MEDS: FLUTICASONE 50 MCG NASAL SPRAY 16 GM BOTTLE BOTH NARES SCH (10:02)
[2018-04-09] MEDS: BISACODYL 10 MG SUPP RECTAL SCH (10:03)
[2018-04-09] MEDS: MULTIVITAMIN LIQUID (CENTRUM) 60 ML BOTTLE PO SCH (10:03)
[2018-04-10] MEDS: AMOXICILLIN/CLAV 500 MG TABLET PO SCH ×2 (00:15→08:34)
[2018-04-10] MEDS: PHENYTOIN ER 100 MG CAPSULE PO SCH ×2 (00:16→08:34)
[2018-04-10] MEDS: ATORVASTATIN 40 MG TABLET PO SCH (00:17)
[2018-04-10] MEDS: levETIRAcetam 500 MG TABLET PO SCH ×2 (00:17→08:35)
[2018-04-10] MEDS: LABETALOL 200 MG TABLET PO SCH ×2 (00:18→08:35)
[2018-04-10] MEDS: INSULIN REGULAR 100 UNIT/ML SUBCUT SCH ×3 (01:25→11:40)
[2018-04-10] MEDS: ALBUTEROL/IPRATROPIUM 3 ML NEB RESP TX SCH ×3 (03:49→11:11)
[2018-04-10 07:31] VITALS: BP 147/67
[2018-04-10] MEDS: FERROUS SULFATE 325 MG TABLET PO SCH (08:34)
[2018-04-10] MEDS: DONEPEZIL 5 MG TABLET PO SCH (08:34)
[2018-04-10] MEDS: ASPIRIN CHEW 81 MG TABLET PO SCH (08:34)
[2018-04-10] MEDS: MULTIVITAMIN LIQUID (CENTRUM) 60 ML BOTTLE PO SCH (08:34)
[2018-04-10] MEDS: INSULIN GLARGINE 100 UNIT/ML SUBCUT SCH (08:35)
[2018-04-10] MEDS: SERTRALINE 25 MG TABLET PO SCH (08:35)
[2018-04-10] MEDS: PANTOPRAZOLE 40 MG TABLET PO SCH (08:35)
[2018-04-10] MEDS: amLODIPine 5 MG TABLET PO SCH (08:35)
[2018-04-10] MEDS: BISACODYL 10 MG SUPP RECTAL SCH (09:23)
[2018-04-10] MEDS: FLUTICASONE 50 MCG NASAL SPRAY 16 GM BOTTLE BOTH NARES SCH (09:50)
== END 2018-04-10 13:53 | DRG 53 ==
LOC: SUATTDRO 14:40 → N.CC 15:39 → N.5E 04-09 00:25
PROVIDERS: ADMIT Internal Medicine